=== PATIENT | female | born 1940 | race Caucasian/White ===

== ENCOUNTER 2017-07-21 10:22 | Emergency (ER) | payer OTHER ==
--- NOTE | 2017-07-21 11:56 | RAD REPORT ---
EXAM DESCRIPTION: RAD - Wrist Left 3 View - 07/21/2017 11:25 am CLINICAL HISTORY: Slip and fall, hand and wrist pain COMPARISON: None. FINDINGS: There is comminuted fracture of the distal radius with impaction of the main body radius i nto the multiple fracture fragments. Fracture fragments are displaced. Articular surface is involved by the fracture. Ulna styloid fracture is present. Carpal bones maintain normal positioning to the fr acture fragments. No significant angulation deformity. No displacement in anterior or posterior direc tion. No pathologic bone process. Underlying degenerative changes are present. No foreign body or oth er soft tissue abnormality. IMPRESSION: Comminuted distal radius fracture with impaction of the main body radius into the multip le fracture fragments. Fracture involves the articular surface along more than 1 site. Ulna styloid fracture.
--- NOTE | 2017-07-21 11:58 | RAD REPORT ---
EXAM DESCRIPTION: RAD - Hand Left 3 View - 07/21/2017 11:25 am CLINICAL HISTORY: Fall, hand and wrist pain COMPARISON: None. FINDINGS: Distal radius and ulna fractures are separately detailed. No fracture or displacement of the carpal bones. There is moderate severity degenerative change at th e scaphoid trapezium and trapezium first metacarpal articulations. Carpal-metacarpal degenerative mt nges are present, mild in degree, throughout the remainder of the second-fifth metacarpal bones. MCP joints are generally spared any significant degenerative change. Mild to moderate degenerative change involves the IP joints of the hand. Findings are most pronounced at the fifth DIP joint. Joint space narrowing and spurring seen. No erosive or destructive component . No abnormal soft tissue calcifications. No foreign body. IMPRESSION: Degenerative changes are present as detailed. No acute finding of the hand. Distal radiu s and ulna fractures are separately detailed.
[2017-07-21] MEDS ORDERED: IBUPROFEN 400 MG TAB ONE (12:13)
--- NOTE | 2017-07-21 13:10 | ER ---
Nurse's Notes [facility] Name: Lizet Hsieh Age: 76 yrs Sex: Female : 1940 Arrival Date: 07/21/2017 Time: 10:26 Bed 10 Private MD: Sridevi Billy C Diagnosis: Displaced comminuted fracture of shaft of radius, left arm Presentation: 07/21 10:30 Presenting complaint: Patient states: "I fell a couple hours ago at [employer] and I lk1 braced myself with my left hand. I think that wrist is broken.". Transition of care: patient was not received from another setting of care. Onset of symptoms was July 21, 2017 at 08:00. Care prior to arrival: None. 10:30 Method Of Arrival: Ambulatory lk1 10:30 Acuity: MIGUEL ANGEL 3 lk1 Triage Assessment: 10:33 General: Appears in no apparent distress. Behavior is calm, cooperative, appropriate lk1 for age. Pain: Denies pain. Pain at worst was 8 out of 10 on a pain scale. Historical: - Allergies: 10:32 "pain pills"; lk1 10:32 Codeine; lk1 - PMHx: 10:33 osteopenia; High Cholesterol; lk1 - PSHx: 10:32 R hip surgery; R knee replacement; lk1 - Immunization history:: Adult Immunizations up to date. - Social history:: Smoking status: Patient/guardian denies using tobacco. - Family history:: not pertinent. - Hospitalizations: : No recent hospitalization is reported. Screenin:45 Abuse screen: Denies threats or abuse. Denies injuries from another. Nutritional aj1 screening: No deficits noted. Tuberculosis screening: No symptoms or risk factors identified. Assessment: 10:45 General: Appears in no apparent distress. uncomfortable, Behavior is calm, cooperative, aj1 appropriate for age. Pain: Complains of pain in left wrist Pain does not radiate. Pain currently is 8 out of 10 on a pain scale. Quality of pain is described as unable to describe Aggravated by repositioning. Neuro: Level of Consciousness is awake, alert, obeys commands, Oriented to person, place, time, situation, Speech is normal, Facial symmetry appears normal. Cardiovascular: Patient's skin is warm and dry. Respiratory: Airway is patent Respiratory effort is even, unlabored, Respiratory pattern is regular, symmetrical. GI: No signs and/or symptoms were reported involving the gastrointestinal system. : No signs and/or symptoms were reported regarding the genitourinary system. EENT: No signs and/or symptoms were reported regarding the EENT system. Derm: No signs and/or symptoms reported regarding the dermatologic system. Skin is pink, warm \\T\\ dry. normal. Musculoskeletal: Capillary refill < 3 seconds, in left fingers. Range of motion: limited in left wrist Swelling present in left hand and left wrist. 11:45 Reassessment: Patient appears in no apparent distress at this time. No changes from aj1 previously documented assessment. Patient and/or family updated on plan of care and expected duration. Pain level reassessed. Patient is alert, oriented x 3, equal unlabored respirations, skin warm/dry/pink. 12:25 Reassessment: pt placed in finger traps initially with 4 lbs weight as traction, weight iw now increased to 7 lbs. Vital Signs: 10:34 BP 121 / 71; Pulse 78; Resp 15; Temp 97.7(TE); Pulse Ox 97% on R/A; Weight 61.69 kg lk1 (R); Height 5 ft. 3 in. (160.02 cm) (R); Pain 0/10; 10:34 Body Mass Index 24.09 (61.69 kg, 160.02 cm) lk1 ED Course: 10:26 Patient arrived in ED. mr 10:26 Sridevi Billy MD is Private Physician. mr 10:31 Triage completed. lk1 10:36 Arm band placed on right wrist. lk1 10:40 Truong Shelton MD is Attending Physician. rn 10:43 Syl Capellan RN is Primary Nurse. aj1 10:45 Patient has correct armband on for positive identification. Call light in reach. aj1 10:45 No provider procedures requiring assistance completed. aj1 11:24 X-ray completed. Portable x-ray completed in exam room. Patient tolerated procedure mh1 well. 11:26 XRAY Wrist LEFT 3 view In Process Unspecified. EDMS 11:26 XRAY Hand LEFT 3 View In Process Unspecified. EDMS 13:09 Alden Truong MD is Referral Physician. rn 13:33 X-ray completed. Portable x-ray completed in exam room. Patient tolerated procedure mh1 well. 13:33 XRAY Wrist LEFT 2 view In Process Unspecified. EDMS 13:37 Orthoglass splint: Sugar tong splint applied on left arm. aj1 Administered Medications: 11:57 Drug: Motrin 800 mg Route: PO; aj1 13:38 Follow up: Response: No adverse reaction aj1 Outcome: 13:10 Discharge ordered by . rn 14:31 Patient left the ED. aj1 Signatures: Dispatcher [employer] EDMS Syl Capellan, RN RN aj Elaine Carlton Alan Gimenezha 1 Ewa Mendoza, RN ALONZO Truong Shelton MD MD rn Kluge, Leah, RN RN lk1
--- NOTE | 2017-07-21 13:10 | EDPHYS ---
Physician Documentation [facility] Name: Lizet Hsieh Age: 76 yrs Sex: Female : 1940 Arrival Date: 07/21/2017 Time: 10:26 Bed 10 Private MD: Sridevi Billy C ED Physician Truong Shelton HPI: 07/21 10:46 This 76 yrs old Female presents to ER via Ambulatory with complaints of Fall rn Injury. 10:46 Details of fall: The patient fell from an upright position, while walking. Onset: The rn symptoms/episode began/occurred just prior to arrival. Associated injuries: The patient sustained left wrist. Severity of symptoms: At their worst the symptoms were mild, in the emergency department the symptoms are unchanged. The patient has not experienced similar symptoms in the past. The patient has not recently seen a physician. Reports standing, fell on outstretched hand, pain to left wrist, no numbness/tingling. Historical: - Allergies: 10:32 "pain pills"; lk1 10:32 Codeine; lk1 - PMHx: 10:33 osteopenia; High Cholesterol; lk1 - PSHx: 10:32 R hip surgery; R knee replacement; lk1 - Immunization history:: Adult Immunizations up to date. - Social history:: Smoking status: Patient/guardian denies using tobacco. - Family history:: not pertinent. - Hospitalizations: : No recent hospitalization is reported. ROS: 10:46 Constitutional: Negative for fever, chills, and weight loss, Eyes: Negative for injury, rn pain, redness, and discharge, Neck: Negative for injury, pain, and swelling, Cardiovascular: Negative for chest pain, palpitations, and edema, Respiratory: Negative for shortness of breath, cough, wheezing, and pleuritic chest pain, Abdomen/GI: Negative for abdominal pain, nausea, vomiting, diarrhea, and constipation, Back: Negative for injury and pain, MS/Extremity: + left wrist pain and injury Skin: Negative for injury, rash, and discoloration, Neuro: Negative for headache, weakness, numbness, tingling, and seizure. Exam: 10:46 Constitutional: This is a well developed, well nourished patient who is awake, alert, rn and in no acute distress. Head/Face: Normocephalic, atraumatic. Eyes: Pupils equal round and reactive to light, extra-ocular motions intact. Lids and lashes normal. Conjunctiva and sclera are non-icteric and not injected. Cornea within normal limits. Periorbital areas with no swelling, redness, or edema. Neck: Trachea midline, no thyromegaly or masses palpated, and no cervical lymphadenopathy. Supple, full range of motion without nuchal rigidity, or vertebral point tenderness. No Meningismus. Cardiovascular: Regular rate and rhythm with a normal S1 and S2. No gallops, murmurs, or rubs. Normal PMI, no JVD. No pulse deficits. Respiratory: Lungs have equal breath sounds bilaterally, clear to auscultation and percussion. No rales, rhonchi or wheezes noted. No increased work of breathing, no retractions or nasal flaring. Abdomen/GI: Soft, non-tender, with normal bowel sounds. No distension or tympany. No guarding or rebound. No evidence of tenderness throughout. Back: No spinal tenderness. No costovertebral tenderness. Full range of motion. MS/ Extremity: Pulses equal, no cyanosis. Neurovascular intact. + tender left distal radius, no crepitus, + mild dorsal swelling, no tenderness along MCPs Neuro: Awake and alert, GCS 15, oriented to person, place, time, and situation. Cranial nerves II-XII grossly intact. Motor strength 5/5 in all extremities. Sensory grossly intact. Cerebellar exam normal. Normal gait. Vital Signs: 10:34 BP 121 / 71; Pulse 78; Resp 15; Temp 97.7(TE); Pulse Ox 97% on R/A; Weight 61.69 kg lk1 (R); Height 5 ft. 3 in. (160.02 cm) (R); Pain 0/10; 10:34 Body Mass Index 24.09 (61.69 kg, 160.02 cm) lk1 MDM: 10:40 Patient medically screened. rn 13:07 Differential diagnosis: fracture, sprain, strain. Data reviewed: vital signs, nurses rn notes, radiologic studies, plain films, and as a result, I will discharge patient. Counseling: I had a detailed discussion with the patient and/or guardian regarding: the historical points, exam findings, and any diagnostic results supporting the discharge/admit diagnosis, radiology results, the need for outpatient follow up, to return to the emergency department if symptoms worsen or persist or if there are any questions or concerns that arise at home. Special discussion: I discussed with the patient/guardian in detail that at this point there is no indication for admission to the hospital. It is understood, however, that if the symptoms persist or worsen the patient needs to return immediately for re-evaluation. 13:10 ED course: Pt states cannot take pain medication, wants only ibuprofen.. rn 07/21 10:44 Order name: XRAY Wrist LEFT 3 view; Complete Time: 11:59 rn 07/21 10:44 Order name: XRAY Hand LEFT 3 View; Complete Time: 11:59 rn 07/21 11:46 Order name: Splint - Sugar Tong - Forearm: place in finger traps and traction with rn weight for 20 min then splint; Complete Time: 12:28 07/21 13:11 Order name: XRAY Wrist LEFT 2 view; Complete Time: 14:06 rn Administered Medications: 11:57 Drug: Motrin 800 mg Route: PO; aj 13:38 Follow up: Response: No adverse reaction aj1 Disposition: 07/21/17 13:10 Discharged to Home. Impression: Displaced comminuted fracture of shaft of radius, left arm. - Condition is Stable. - Discharge Instructions: Wrist Fracture, Wrist Splint. - Medication Reconciliation Form, Thank You Letter, Antibiotic Education, Prescription Opioid Use form. - Follow up: Alden Truong MD; When: 5 - 6 days; Reason: Recheck today's complaints, Re-evaluation by your physician. - Problem is new. - Symptoms have improved. Signatures: Dispatcher [employer] EDSyl Hyatt RN RN aj1 Truong Shelton MD MD rn Kluge, Leah, RN RN lk1
--- NOTE | 2017-07-21 13:55 | RAD REPORT ---
EXAM DESCRIPTION: RAD - Wrist Left 2 View - 07/21/2017 1:33 pm FINDINGS: Two views of the left wrist were obtained during traction maneuver. The impaction has impr shireen but not fully resolved. Comminuted fracture of the distal radius again noted.
[2017-07-21 14:35] VITALS: BP 121/71; TEMP 97.7; O2SAT 97
== END 2017-07-21 14:31 | disposition home or self-care (01) ==
LOC: ER 10:22
DX: Y92.512 Supermarket, store or market as the place of occurrence of the external cause; S52.352A Displaced comminuted fracture of shaft of radius, left arm, initial encounter for closed fracture; Y93.01 Activity, walking, marching and hiking; Z88.5 Allergy status to narcotic agent; W18.30XA Fall on same level, unspecified, initial encounter
CPT/HCPCS: 99283

== ENCOUNTER 2018-02-23 22:55 | Emergency (ER) | payer OTHER ==
--- NOTE | 2018-02-23 23:50 | ER ---
Nurse's Notes [facility] Name: Lizet Hsieh Age: 77 yrs Sex: Female : 1940 Arrival Date: 02/23/2018 Time: 22:55 Bed 15 Private MD: Diagnosis: Fracture of greater tuberosity of humerus Presentation: 02/23 23:09 Presenting complaint: EMS states: The pt was vacuuming in her home when she lost jb4 balance and fell. She hit her shoulder on the coffee table, denies LOC or hitting her head. pt was sitting in the recliner upon arrival, and had elevated b/p. Transition of care: patient was not received from another setting of care. Onset of symptoms was February 23, 2018. Risk Assessment: Do you want to hurt yourself or someone else? Patient reports no desire to harm self or others. Initial Sepsis Screen: Does the patient meet any 2 criteria? No. Patient's initial sepsis screen is negative. Does the patient have a suspected source of infection? No. Patient's initial sepsis screen is negative. Care prior to arrival: Glucose check: 128. 23:09 Method Of Arrival: EMS: [facility] jb4 23:09 Acuity: MIGUEL ANGEL 3 jb4 Triage Assessment: 23:15 General: Appears in no apparent distress. comfortable, Behavior is calm, cooperative, jb4 appropriate for age. Pain: Complains of pain in Right shoulder. Pain does not radiate. Pain currently is 0 out of 10 on a pain scale. at worst was 10 out of 10 on a pain scale. EENT: No signs and/or symptoms were reported regarding the EENT system. Neuro: Level of Consciousness is awake, alert, obeys commands, Oriented to person, place, time, situation. Cardiovascular: Patient's skin is warm and dry. Respiratory: Airway is patent Respiratory effort is even, unlabored, Respiratory pattern is regular, symmetrical. GI: No signs and/or symptoms were reported involving the gastrointestinal system. : No signs and/or symptoms were reported regarding the genitourinary system. Derm: Skin is intact, Skin is pink, warm \\T\\ dry. Musculoskeletal: Circulation, motion, and sensation intact. Historical: - Allergies: 23:15 "pain pills"; jb4 23:15 Codeine; jb4 - Home Meds: 23:15 Lipitor Oral [Active]; Aspirin Oral [Active]; Multiple Vitamins oral oral [Active]; jb4 - PMHx: 23:15 High Cholesterol; Osteopenia; jb4 - PSHx: 23:15 R hip surgery; R knee replacement; L wrist surgery; jb4 - Immunization history:: Adult Immunizations up to date, Flu vaccine status is unknown. - Social history:: Smoking status: Patient/guardian denies using tobacco, Patient/guardian denies using alcohol. - Ebola Screening: : No symptoms or risks identified at this time. Screenin:19 Abuse screen: Denies threats or abuse. Nutritional screening: No deficits noted. jb4 Tuberculosis screening: No symptoms or risk factors identified. Fall Risk Ambulatory Aid- Crutches/Cane/Walker (15 pts). Total Grant Fall Scale indicates No Risk (0-24 pts). Assessment: 23:19 General: see triage assessment.. jb4 02/24 00:12 Reassessment: Patient appears in no apparent distress at this time. Patient and/or jb4 family updated on plan of care and expected duration. Pain level reassessed. Patient is alert, oriented x 3, equal unlabored respirations, skin warm/dry/pink. Vital Signs: 02/23 23:15 BP 109 / 74; Pulse 84; Resp 18; Temp 98.0(O); Pulse Ox 98% ; Weight 61.23 kg; Height 5 jb4 ft. 3 in. (160.02 cm); Pain 0/10; 02/24 00:12 BP 121 / 76; Pulse 84; Pulse Ox 97% on R/A; jb4 02/23 23:15 Body Mass Index 23.91 (61.23 kg, 160.02 cm) jb4 ED Course: 02/23 22:55 Patient arrived in ED. al2 23:04 Justice Araujo NP is PHCP. pm1 23:04 Carmelo Duarte MD is Attending Physician. pm1 23:07 Freddie Meehan, RN is Primary Nurse. jb4 23:12 Triage completed. jb4 23:15 Arm band placed on left wrist. jb4 23:19 Patient has correct armband on for positive identification. Bed in low position. Call jb4 light in reach. Side rails up X2. Pulse ox on. NIBP on. 23:47 X-ray completed. Portable x-ray completed in exam room. Patient tolerated procedure kw well. 23:47 Humerus Right XRAY In Process Unspecified. EDMS 23:49 Yonis Damico MD is Referral Physician. pm1 02/24 00:12 No provider procedures requiring assistance completed. Patient did not have IV access jb4 during this emergency room visit. Administered Medications: No medications were administered Outcome: 02/23 23:50 Discharge ordered by MD. pm1 02/24 00:12 Discharged to home ambulatory. jb4 Condition: stable Discharge instructions given to patient, family, Instructed on discharge instructions, follow up and referral plans. medication usage, Demonstrated understanding of instructions, follow-up care, medications. 00:13 Patient left the ED. jb4 Signatures: Dispatcher [employer] EDMS Kerrie Kemp Patrick, SHANTA ASSISTANT WAREHOUSE MANAGER pm1 Freddie Meehan, RN RN jb4 Padmini Hines2
--- NOTE | 2018-02-23 23:51 | EDPHYS ---
Physician Documentation [facility] Name: Lizet Hsieh Age: 77 yrs Sex: Female : 1940 Arrival Date: 02/23/2018 Time: 22:55 Bed 15 Private MD: ED Physician Carmelo Duarte HPI: 02/23 23:50 This 77 yrs old Female presents to ER via EMS with complaints of Fall Injury. pm1 23:50 Details of fall: The patient fell from an upright position, while standing. Onset: The pm1 symptoms/episode began/occurred today. Associated injuries: The patient sustained posterior aspect of right shoulder. Severity of symptoms: in the emergency department the symptoms are unchanged. The patient has not experienced similar symptoms in the past. The patient has not recently seen a physician. Patient uses a walker. Patient decided to vacuum without the use of her walker. Patient lost her balance and hit her right shoulder on the coffee table. No headache, head injury, neck pain, LOC. Patient able to walk after injury. No numbness or tingling to right hand. Historical: - Allergies: 23:15 "pain pills"; jb4 23:15 Codeine; jb4 - Home Meds: 23:15 Lipitor Oral [Active]; Aspirin Oral [Active]; Multiple Vitamins oral oral [Active]; jb4 - PMHx: 23:15 High Cholesterol; Osteopenia; jb4 - PSHx: 23:15 R hip surgery; R knee replacement; L wrist surgery; jb4 - Immunization history:: Adult Immunizations up to date, Flu vaccine status is unknown. - Social history:: Smoking status: Patient/guardian denies using tobacco, Patient/guardian denies using alcohol. - Ebola Screening: : No symptoms or risks identified at this time. ROS: 23:50 Constitutional: Negative for fever, chills, and weight loss, Eyes: Negative for injury, pm1 pain, redness, and discharge, ENT: Negative for injury, pain, and discharge, Neck: Negative for injury, pain, and swelling, Cardiovascular: Negative for chest pain, palpitations, and edema, Respiratory: Negative for shortness of breath, cough, wheezing, and pleuritic chest pain, Abdomen/GI: Negative for abdominal pain, nausea, vomiting, diarrhea, and constipation, Back: Negative for injury and pain. 23:50 Skin: Negative for injury, rash, and discoloration, Neuro: Negative for headache, weakness, numbness, tingling, and seizure. 23:50 MS/extremity: Positive for pain, of the posterior aspect of right shoulder, Negative for deformity. Exam: 23:50 Constitutional: This is a well developed, well nourished patient who is awake, alert, pm1 and in no acute distress. Head/Face: Normocephalic, atraumatic. Eyes: Pupils equal round and reactive to light, extra-ocular motions intact. Lids and lashes normal. Conjunctiva and sclera are non-icteric and not injected. Cornea within normal limits. Periorbital areas with no swelling, redness, or edema. ENT: Nares patent. No nasal discharge, no septal abnormalities noted. Tympanic membranes are normal and external auditory canals are clear. Oropharynx with no redness, swelling, or masses, exudates, or evidence of obstruction, uvula midline. Mucous membranes moist. Neck: Trachea midline, no thyromegaly or masses palpated, and no cervical lymphadenopathy. Supple, full range of motion without nuchal rigidity, or vertebral point tenderness. No Meningismus. Chest/axilla: Normal chest wall appearance and motion. Nontender with no deformity. No lesions are appreciated. Cardiovascular: Regular rate and rhythm with a normal S1 and S2. No gallops, murmurs, or rubs. Normal PMI, no JVD. No pulse deficits. Respiratory: Lungs have equal breath sounds bilaterally, clear to auscultation and percussion. No rales, rhonchi or wheezes noted. No increased work of breathing, no retractions or nasal flaring. Abdomen/GI: Soft, non-tender, with normal bowel sounds. No distension or tympany. No guarding or rebound. No evidence of tenderness throughout. Back: No spinal tenderness. No costovertebral tenderness. Full range of motion. Skin: Warm, dry with normal turgor. Normal color with no rashes, no lesions, and no evidence of cellulitis. 23:50 Musculoskeletal/extremity: Extremities: grossly normal except: noted in the posterior and lateral aspect of proximal right humerus: tenderness, There is no evidence of deformity, ROM: Circulation is intact in all extremities. Pulses: noted to be 2+ in the right radial artery. 23:50 Neuro: Orientation: is normal, Motor: moves all fours, strength is 5/5 in all extremities. Vital Signs: 23:15 BP 109 / 74; Pulse 84; Resp 18; Temp 98.0(O); Pulse Ox 98% ; Weight 61.23 kg; Height 5 jb4 ft. 3 in. (160.02 cm); Pain 0/10; 02/24 00:12 BP 121 / 76; Pulse 84; Pulse Ox 97% on R/A; jb4 02/23 23:15 Body Mass Index 23.91 (61.23 kg, 160.02 cm) jb4 MDM: 02/23 23:09 Patient medically screened. [facility] 23:49 Data reviewed: vital signs. Data interpreted: Pulse oximetry: on room air is 98 %. pm1 Interpretation: normal. Counseling: I had a detailed discussion with the patient and/or guardian regarding: the historical points, exam findings, and any diagnostic results supporting the discharge/admit diagnosis, radiology results, the need for outpatient follow up, for definitive care, a orthopedic surgeon, to return to the emergency department if symptoms worsen or persist or if there are any questions or concerns that arise at home. 02/23 23:22 Order name: Humerus Right XRAY pm1 02/23 23:49 Order name: Sling; Complete Time: 23:58 pm1 Administered Medications: No medications were administered Disposition: 02/24 08:55 Co-signature as Attending Physician, Carmelo Duarte MD I agree with the assessment and [facility] plan of care. Disposition: 02/23/18 23:50 Discharged to Home. Impression: Fracture of greater tuberosity of humerus. - Condition is Stable. - Discharge Instructions: Humerus Fracture Treated With Immobilization. - Medication Reconciliation Form, Thank You Letter form. - Follow up: Yonis Damico MD; When: 2 - 3 days; Reason: Recheck today's complaints, Continuance of care, Re-evaluation by your physician. - Problem is new. - Symptoms have improved. Signatures: Dispatcher [employer] Carmelo Mohamud MD MD cha Marinas, Patrick, DURABLE MEDICAL EQUIPMENT REPAIRER DURABLE MEDICAL EQUIPMENT REPAIRER pm1 Freddie Meehan RN RN jb4 Corrections: (The following items were deleted from the chart) 00:13 02/23 23:50 02/23/2018 23:50 Discharged to Home. Impression: Fracture of greater jb4 tuberosity of humerus. Condition is Stable. Forms are Medication Reconciliation Form, Thank You Letter, Antibiotic Education, Prescription Opioid Use. Follow up: Yonis Damico; When: 2 - 3 days; Reason: Recheck today's complaints, Continuance of care, Re-evaluation by your physician. Problem is new. Symptoms have improved. pm1
[2018-02-24 00:18] VITALS: TEMP 98
[2018-02-24 00:19] VITALS: BP 121/76; O2SAT 97
--- NOTE | 2018-02-24 08:40 | RAD REPORT ---
EXAM DESCRIPTION: RAD - Humerus Right - 02/23/2018 11:47 pm CLINICAL HISTORY: Fall, shoulder pain COMPARISON: None. FINDINGS: Transverse fracture is present through the proximal right humeral metaphysis. No distracti on or angulation deformity. There is no dislocation of the humeral head. No pathologic component seen . Minimal AC joint degenerative change present without spurring. Acromial humeral joint space is normal . IMPRESSION: Proximal right humerus fracture as detailed.
== END 2018-02-24 00:13 | disposition home or self-care (01) ==
LOC: ER 22:55
DX: S42.251A Displaced fracture of greater tuberosity of right humerus, initial encounter for closed fracture (principal); E78.00 Pure hypercholesterolemia, unspecified; W18.39XA Other fall on same level, initial encounter; Y93.89 Activity, other specified; Y92.009 Unspecified place in unspecified non-institutional (private) residence as the place of occurrence of the external cause; Z88.6 Allergy status to analgesic agent
CPT/HCPCS: 99283

== ENCOUNTER 2018-10-04 18:09 | Emergency (ER) | payer OTHER ==
--- NOTE | 2018-10-04 19:35 | RAD REPORT ---
EXAM DESCRIPTION: CT - Head C Spine Mpr Wo Con - 10/04/2018 7:21 pm CLINICAL HISTORY: Head and neck injury status post fall. Head and neck pain COMPARISON: None. TECHNIQUE: Computed axial tomography of the head and cervical spine was obtained. Sagittal and coronal reconstruction was performed. All CT scans are performed using dose optimization technique as appropriate and may include automated exposure control or mA/KV adjustment according to patient size. FINDINGS: An intracranial bleed is not seen. The ventricles are normal in caliber. An extra-axial fl uid collection is not noted.Fluid within the visualized sinuses and mastoids is not seen A cervical fracture is not visualized. No dislocation is noted. Mild anterior subluxation C3 on C4. Mild posterior subluxation C5 on C6. Spondylosis C5-6 results in marked narrowing of the neural kris horacio bilaterally and mild central spinal stenosis. Disc is thinned IMPRESSION: No acute intracranial abnormality is seen. A cervical fracture is not visualized. If the patient continues to have symptoms to suggest intracra nial /spinal cord/ligamentous pathology then MRI would be recommended
--- NOTE | 2018-10-04 19:49 | RAD REPORT ---
EXAM DESCRIPTION: RAD - Forearm Right - 10/04/2018 7:39 pm CLINICAL HISTORY: Right arm pain status post fall FINDINGS: Markedly displaced fracture involves the distal diaphysis right radius Plate and screws affix an old distal radial fracture. Osteoporosis
[2018-10-04] MEDS ORDERED: NA CHLORIDE 0.9% 500 ML ONE (20:17)
[2018-10-04] MEDS ORDERED: FENTANYL CITR 100 MCG/2 ML ONE (20:17)
[2018-10-04] MEDS ORDERED: PROPOFOL 200 MG/20 ML VIAL IV ONE (20:17)
[2018-10-04] MEDS ORDERED: ONDANSETRON 4 MG/2 ML VIAL ONE (20:47)
--- NOTE | 2018-10-04 21:27 | RAD REPORT ---
EXAM DESCRIPTION: RAD - Forearm Right - 10/04/2018 8:54 pm CLINICAL HISTORY: Radial fracture FINDINGS: Although there is less displacement of the radial fracture fragments than on the prior exa m, marked displacement persists
--- NOTE | 2018-10-04 21:33 | ER ---
Nurse's Notes [facility] Name: Lizet Hsieh Age: 77 yrs Sex: Female : 1940 Arrival Date: 10/04/2018 Time: 18:13 Bed 4 Private MD: Diagnosis: Distal radius fracture Presentation: 10/04 18:19 Presenting complaint: Patient states: Patient slipped and fell while walking on concrete today at 1630. Bruising and abrasion to right wrist. Denies LOC. Mechanism of Injury: Fall from standing position. Trauma event details: Injury occurred in the [facility], Injury occurred: at home. Injury occurred: October 04, 2018 Injury occurred at: 16:30. 18:19 Acuity: MIGUEL ANGEL 3 19:23 Transition of care: patient was not received from another setting of care. Onset of ph symptoms was October 04, 2018. Risk Assessment: Do you want to hurt yourself or someone else? Patient reports no desire to harm self or others. Initial Sepsis Screen: Does the patient meet any 2 criteria? No. Patient's initial sepsis screen is negative. Does the patient have a suspected source of infection? No. Patient's initial sepsis screen is negative. Care prior to arrival: None. 19:23 Method Of Arrival: Ambulatory Trauma Activation: Not Applicable Physician: ED Physician; Name: ; Notified At: ; Arrived At: Physician: General Surgeon; Name: ; Notified At: ; Arrived At: Physician: Radiology; Name: ; Notified At: ; Arrived At: Physician: Respiratory; Name: ; Notified At: ; Arrived At: Physician: Lab; Name: ; Notified At: ; Arrived At: Historical: - Allergies: 18:22 "pain pills"; aj 18:22 Codeine; aj - Home Meds: 19:52 Aspirin Oral [Active]; Lipitor Oral [Active]; Multiple Vitamins Oral [Active]; lp1 - PMHx: 19:52 High Cholesterol; Osteopenia; lp1 - Immunization history:: Adult Immunizations unknown. - Social history:: Smoking status: Patient/guardian denies using tobacco. - Ebola Screening: : No symptoms or risks identified at this time. Screenin:22 Abuse screen: Denies threats or abuse. Denies injuries from another. Nutritional ph screening: No deficits noted. Tuberculosis screening: No symptoms or risk factors identified. Fall Risk Fall in past 12 months (25 points). No secondary diagnosis (0 pts). No IV (0 pts). Ambulatory Aid- None/Bed Rest/Nurse Assist (0 pts). Gait- Normal/Bed Rest/Wheelchair (0 pts) Mental Status- Oriented to own ability (0 pts). Total Grant Fall Scale indicates Low Risk Score (25-44 pts). Fall prevention measures have been instituted. Side Rails Up X 2 Family Present and informed to notify staff if they need to leave bedside. Assessment: 18:19 General: Appears in no apparent distress. comfortable, Behavior is calm, cooperative, aj appropriate for age. Pain: Complains of pain in right wrist. Neuro: Level of Consciousness is awake, alert, obeys commands, Oriented to person, place, time, situation, Appropriate for age. Respiratory: Airway is patent Respiratory effort is even, unlabored, Respiratory pattern is regular, symmetrical. Derm: Skin is intact, is healthy with good turgor, Skin is pink, warm \\T\\ dry. normal. 19:30 Reassessment: Patient appears in no apparent distress at this time. Patient is alert, lp1 oriented x 3, equal unlabored respirations, skin warm/dry/pink. Derm: Wound noted Wound is abrasion to right wrist. 19:30 Cardiovascular: Patient's skin is warm and dry. Musculoskeletal: Circulation, motion, lp1 and sensation intact. 19:45 Reassessment: Dr. Ashford at beside to discuss plan of care with patient and family. lp1 20:15 Reassessment: Provider giving verbal orders during conscious sedation. lp1 21:00 Reassessment: Patient is alert, oriented x 3, equal unlabored respirations, skin lp1 warm/dry/pink. Patient tolerating ice chips at this time; Conscious sedation completed at this time; X-ray at bedside. 21:30 Reassessment: Patient appears in no apparent distress at this time. Patient is alert, lp1 oriented x 3, equal unlabored respirations, skin warm/dry/pink. Patient states feeling better. Cardiovascular: Capillary refill < 3 seconds in bilateral fingers Pulses are all present. Vital Signs: 18:19 BP 135 / 65; Pulse 76; Resp 20; Temp 98.3; Pulse Ox 98% on R/A; Weight 61.23 kg; Height aj 5 ft. 2 in. (157.48 cm); 20:14 BP 117 / 88; Pulse 70; Resp 18; Temp 98.1(TE); Pulse Ox 98% on R/A; lp1 21:16 BP 129 / 75; Pulse 72; Resp 18; Pulse Ox 97% ; aa1 21:30 BP 114 / 90; Pulse 73; Resp 13; Pulse Ox 98% on R/A; Pain 1/10; lp1 18:19 Body Mass Index 24.69 (61.23 kg, 157.48 cm) aj 20:14 See Conscious Sedation Flowsheet for further vitals lp1 [place] Coma Score: 18:19 Eye Response: spontaneous(4). Verbal Response: oriented(5). Motor Response: obeys aj commands(6). Total: 15. Trauma Score (Adult): 18:19 Eye Response: spontaneous(1); Verbal Response: oriented(1); Motor Response: obeys aj commands(2); Systolic BP: > 89 mm Hg(4); Respiratory Rate: 10 to 29 per min(4); [place] Score: 15; Trauma Score: 12 ED Course: 18:13 Patient arrived in ED. tw3 18:20 Triage completed. aj 18:22 Arm band placed on left wrist. Patient placed in an exam room. aj 18:27 Kaylah Ko, RN is Primary Nurse. ph 18:56 Jerry Ashford MD is Attending Physician. ps1 19:23 CT Head C Spine In Process Unspecified. EDMS 19:23 Patient has correct armband on for positive identification. Bed in low position. Call ph light in reach. Side rails up X 1. Door closed. Noise minimized. 19:43 Forearm Right XRAY In Process Unspecified. EDMS 20:00 Consent for conscious sedation explained by physician, Signed by patient's daughter. lp1 20:00 media monitor on. Pulse ox on. NIBP on. lp1 20:00 One-on-one care X 60 minutes. lp1 20:28 Inserted saline lock: 22 gauge in left antecubital area, using aseptic technique. fc 20:30 Assist provider with reduction of right wrist using manipulation, Set up for procedure. lp1 Performed by Jerry Ashford MD Immobilized with wrist splint, Patient tolerated well. 20:53 Forearm Right XRAY In Process Unspecified. EDMS 21:32 [place], Yonis, MD is Referral Physician. ps1 21:33 Alden Truong MD is Referral Physician. ps1 21:40 IV discontinued, No redness/swelling at site. Pressure dressing applied. lp1 Administered Medications: 20:15 Drug: NS 0.9% 500 ml Route: IV; Rate: bolus; Site: left antecubital; lp1 21:00 Follow up: IV Status: IV converted to saline lock; IV Intake: 300ml lp1 20:32 Drug: fentaNYL (PF) 50 mcg Route: IVP; Site: left antecubital; lp1 20:45 Follow up: Response: No adverse reaction lp1 20:34 Drug: Zofran 4 mg Route: IVP; Site: left antecubital; lp1 20:45 Follow up: Response: No adverse reaction lp1 20:37 Drug: Propofol 30 mg Route: IVP; Site: left antecubital; lp1 20:45 Follow up: Response: No adverse reaction; Marked relief of symptoms lp1 Intake: 21:00 IV: 300ml; Total: 300ml. lp1 Outcome: 21:32 Discharge ordered by MD. ps1 21:40 Discharged to home via wheelchair, with significant other. lp1 21:40 Condition: good 21:40 Discharge instructions given to patient, Instructed on discharge instructions, follow up and referral plans. Demonstrated understanding of instructions, follow-up care. 21:45 Patient left the ED. lp1 Signatures: Dispatcher [employer] EDMS Charlotte Carrera RN RN aaLoretta Stephenson RN RN aj Chretien, Felicia, RN RN fc Pena, Laura, RN RN lp1 Kaylah Ko RN RN ph Wade, Pauline tw3 Jerry Ashford MD MD ps1 Corrections: (The following items were deleted from the chart) 22:10 22:09 Patient left the ED. lp1 lp1 22:23 19:48 No provider procedures requiring assistance completed. lp1 lp1 22:23 19:48 Patient did not have IV access during this emergency room visit. lp1 lp1
--- NOTE | 2018-10-04 21:33 | EDPHYS ---
Physician Documentation [facility] Name: Lizet Hsieh Age: 77 yrs Sex: Female : 1940 Arrival Date: 10/04/2018 Time: 18:13 Bed 4 Private MD: ED Physician Jerry Ashford HPI: 10/04 21:33 This 77 yrs old Female presents to ER via Ambulatory with complaints of Fall ps1 Injury. 21:33 patient fell while [place] hx of previous fx to same bone. ps1 Obvious deformity. Pain moderate. No LOC. Not on thinners. NV intact. Abrasion to lateral aspect of wrist. Not open fx. Historical: - Allergies: 18:22 "pain pills"; aj 18:22 Codeine; aj - Home Meds: 19:52 Aspirin Oral [Active]; Lipitor Oral [Active]; Multiple Vitamins Oral [Active]; lp1 - PMHx: 19:52 High Cholesterol; Osteopenia; lp1 - Immunization history:: Adult Immunizations unknown. - Social history:: Smoking status: Patient/guardian denies using tobacco. - Ebola Screening: : No symptoms or risks identified at this time. ROS: 21:33 Constitutional: Negative for fever, chills, and weight loss, Eyes: Negative for injury, ps1 pain, redness, and discharge, ENT: Negative for injury, pain, and discharge, Cardiovascular: Negative for chest pain, palpitations, and edema, Respiratory: Negative for shortness of breath, cough, wheezing, and pleuritic chest pain, Abdomen/GI: Negative for abdominal pain, nausea, vomiting, diarrhea, and constipation, Skin: Negative for injury, rash, and discoloration, Neuro: Negative for headache, weakness, numbness, tingling, and seizure. 21:33 MS/extremity: Positive for injury or acute deformity, decreased range of motion, tenderness, of the right arm. Exam: 21:33 Constitutional: This is a well developed, well nourished patient who is awake, alert, ps1 and in no acute distress. Head/Face: Normocephalic, atraumatic. Eyes: Pupils equal round and reactive to light, extra-ocular motions intact. Lids and lashes normal. Conjunctiva and sclera are non-icteric and not injected. Neck: Trachea midline, no thyromegaly or masses palpated, and no cervical lymphadenopathy. Supple, full range of motion without nuchal rigidity, or vertebral point tenderness. No Meningismus. Chest/axilla: Normal chest wall appearance and motion. Nontender with no deformity. No lesions are appreciated. Cardiovascular: Regular rate and rhythm. No gallops, murmurs, or rubs. Normal PMI, no JVD. No pulse deficits. Respiratory: Lungs have equal breath sounds bilaterally, clear to auscultation and percussion. No rales, rhonchi or wheezes noted. No increased work of breathing, no retractions or nasal flaring. Abdomen/GI: Soft, non-tender, with normal bowel sounds. No distension or tympany. No guarding or rebound. No evidence of tenderness throughout. Neuro: Awake and alert, GCS 15, oriented to person, place, time, and situation. Cranial nerves II-XII grossly intact. Sensory grossly intact. 21:33 Musculoskeletal/extremity: Extremities: grossly normal except: noted in the dorsal aspect of right forearm: decreased ROM, deformity, tenderness, NV intact. 21:33 Skin: injury, abrasion(s), small abrasion noted, of the right arm. Vital Signs: 18:19 BP 135 / 65; Pulse 76; Resp 20; Temp 98.3; Pulse Ox 98% on R/A; Weight 61.23 kg; Height aj 5 ft. 2 in. (157.48 cm); 20:14 BP 117 / 88; Pulse 70; Resp 18; Temp 98.1(TE); Pulse Ox 98% on R/A; lp1 21:16 BP 129 / 75; Pulse 72; Resp 18; Pulse Ox 97% ; aa1 21:30 BP 114 / 90; Pulse 73; Resp 13; Pulse Ox 98% on R/A; Pain 1/10; lp1 18:19 Body Mass Index 24.69 (61.23 kg, 157.48 cm) aj 20:14 See Conscious Sedation Flowsheet for further vitals lp1 John Coma Score: 18:19 Eye Response: spontaneous(4). Verbal Response: oriented(5). Motor Response: obeys aj commands(6). Total: 15. Trauma Score (Adult): 18:19 Eye Response: spontaneous(1); Verbal Response: oriented(1); Motor Response: obeys aj commands(2); Systolic BP: > 89 mm Hg(4); Respiratory Rate: 10 to 29 per min(4); John Score: 15; Trauma Score: 12 Procedures: 21:37 Splinting: Splint applied to dorsal aspect of right forearm using double sugartong. ps1 applied by myself. post reduction film - reveals improved alignment, Examined by me, post splint application: neurovascular intact, 2+ distal pulses palpable, brisk capillary refill noted, Patient tolerated well. 21:38 Moderate sedation: Pre-procedure assessment: ASA physical classification: II - mild/mod ps1 systemic disease that does not interfere with daily routines, Airway assessment: able to hyperextend neck, able to maintain airway, can open mouth without difficulty, Mallampati classification of tongue size: III - uvula can be visualized, but faucial pillars and soft palate are not appreciated, Monitoring during procedure: stadium manager, continuous pulse oximetry, nurse at bedside at all times, ETCO2, Medications employed: Fentanyl, 50 mcg(s), propofol 60mg, Post-procedure assessment: the patient is moderately sedated, Respiratory status: even and unlabored, a reversal agent was not used. MDM: 19:14 Patient medically screened. ps1 21:37 Data reviewed: vital signs, nurses notes, radiologic studies, plain films, and as a ps1 result, I will discharge patient. Counseling: I had a detailed discussion with the patient and/or guardian regarding: the historical points, exam findings, and any diagnostic results supporting the discharge/admit diagnosis, radiology results, the need for outpatient follow up, for definitive care, a orthopedic surgeon. 21:40 ED course: patient refused pain meds on discharge. ps1 10/04 19:06 Order name: CT Head C Spine; Complete Time: 19:38 ps1 10/04 19:06 Order name: Forearm Right XRAY; Complete Time: 19:55 ps1 10/04 20:38 Order name: Forearm Right XRAY; Complete Time: 21:33 fc Administered Medications: 20:15 Drug: NS 0.9% 500 ml Route: IV; Rate: bolus; Site: left antecubital; lp1 21:00 Follow up: IV Status: IV converted to saline lock; IV Intake: 300ml lp1 20:32 Drug: fentaNYL (PF) 50 mcg Route: IVP; Site: left antecubital; lp1 20:45 Follow up: Response: No adverse reaction lp1 20:34 Drug: Zofran 4 mg Route: IVP; Site: left antecubital; lp1 20:45 Follow up: Response: No adverse reaction lp1 20:37 Drug: Propofol 30 mg Route: IVP; Site: left antecubital; lp1 20:45 Follow up: Response: No adverse reaction; Marked relief of symptoms lp1 Disposition: 10/04/18 21:32 Discharged to Home. Impression: Distal radius fracture. - Condition is Stable. - Discharge Instructions: Forearm Fracture, [id number]. - Medication Reconciliation Form, Thank You Letter, Antibiotic Education, Prescription Opioid Use form. - Follow up: Yonis Damico MD; When: Tomorrow; Reason: If symptoms return, Further diagnostic work-up, Recheck today's complaints, Continuance of care. Follow up: Emergency Department; When: As needed; Reason: Worsening of condition. Follow up: Alden Truong MD; When: Tomorrow; Reason: Further diagnostic work-up. - Problem is new. - Symptoms are unchanged. Signatures: Dispatcher [employer] EDMS Loretta Cruz RN RN aj Geno Locke RN RN lp1 Kaylah Ko RN RN Jerry Ashford MD MD ps1 Corrections: (The following items were deleted from the chart) 21:33 21:32 10/04/2018 21:32 Discharged to Home. Impression: Distal radius fracture. ps1 Condition is Stable. Forms are Medication Reconciliation Form, Thank You Letter, Antibiotic Education, Prescription Opioid Use. Follow up: Yonis Damico; When: Tomorrow; Reason: If symptoms return, Further diagnostic work-up, Recheck today's complaints, Continuance of care. Follow up: Emergency Department; When: As needed; Reason: Worsening of condition. Problem is new. Symptoms are unchanged. ps1 22:09 21:33 10/04/2018 21:32 Discharged to Home. Impression: Distal radius fracture. lp1 Condition is Stable. Discharge Instructions: Forearm Fracture, [id number]. Forms are Medication Reconciliation Form, Thank You Letter, Antibiotic Education, Prescription Opioid Use. Follow up: Yonis Damico; When: Tomorrow; Reason: If symptoms return, Further diagnostic work-up, Recheck today's complaints, Continuance of care. Follow up: Emergency Department; When: As needed; Reason: Worsening of condition. Follow up: Alden Truong; When: Tomorrow; Reason: Further diagnostic work-up. Problem is new. Symptoms are unchanged. ps1
[2018-10-05 05:25] VITALS: BP 115/60; TEMP 98.1; O2SAT 99
== END 2018-10-04 22:09 | disposition home or self-care (01) ==
LOC: ER 18:09
PROC: 0PSHXZZ Reposition Right Radius, External Approach (ICD-10-PCS; principal; 2018-10-04)
DX: S52.501A Unspecified fracture of the lower end of right radius, initial encounter for closed fracture (principal); W19.XXXA Unspecified fall, initial encounter; Y93.89 Activity, other specified; Y92.9 Unspecified place or not applicable; Z79.82 Long term (current) use of aspirin; Z08 Encounter for follow-up examination after completed treatment for malignant neoplasm; Z88.5 Allergy status to narcotic agent; Z88.6 Allergy status to analgesic agent
CPT/HCPCS: 96361; 70450; 72125; 73090 ×2; 96375; 96374; 99285; 25605; J2704; J3010; J2405

== ENCOUNTER 2022-12-26 10:11 | Emergency (ER) | payer OTHER ==
--- OUTSIDE RECORDS SUMMARY | 2022-12-26 10:14 | XMS REPORT | Continuity of Care Document ---
:1940 Author Organization [facility] t Address [address] [place] [id number] Care Team Providers Name Role Phone Unavailable Unavailable Unavailable Problems This patient has no known problems. Allergies, Adverse Reactions, Alerts This patient has no known allergies or adverse reactions. Medications This patient has no known medications. Procedures This patient has no known procedures. Results This patient has no known results.
--- NOTE | 2022-12-26 11:53 | RAD REPORT ---
EXAM DESCRIPTION: CT - [id number] - 12/26/2022 11:24 am CLINICAL HISTORY: TRAUMA COMPARISON: Head C Spine Mpr Wo Con dated 10/04/2018 TECHNIQUE: Axial thin cut noncontrast CT images of the head were obtained. Axial thin cut noncontrast CT images of the cervical spine were obtained. Multiplanar reformatted images were generated and reviewed. All CT scans are performed using dose optimization technique as appropriate and may include automated exposure control or mA/KV adjustment according to patient size. FINDINGS: CT HEAD WITHOUT CONTRAST: No acute hemorrhage, hydrocephalus or extra-axial collection is identified.No areas of brain edema or midline shift. Left high parietal soft tissue swelling/hematoma. The paranasal sinuses and mastoids are clear.The ca lvarium is intact. CT CERVICAL SPINE WITHOUT CONTRAST: No acute traumatic fracture or subluxation.No prevertebral soft tissues swelling is identified. Multi level degenerative changes with minimal degrees of spondylolisthesis, disc height loss, and variable degrees of foraminal narrowing. IMPRESSION: No acute traumatic intracranial or cervical spine findings. Left high parietal soft tissue swelling/hematoma. Degenerative cervical spine changes as above.
--- NOTE | 2022-12-26 12:09 | RAD REPORT ---
EXAM DESCRIPTION: [place] Single View12/26/2022 10:35 am CLINICAL HISTORY: TRAUMA COMPARISON: CHEST SINGLE VIEW dated 09/25/2011; CHEST PA AND LAT 2 VIEW dated 03/03/2008; CHEST PA AND LAT 2 VIEW dated 02/22/1990 TECHNIQUE: Portable AP view of the chest. FINDINGS: The lungs are clear. Left basilar atelectatic changes. No pneumothorax or effusion. The ca rdiomediastinal contours are unremarkable. Proximal left humerus as separately evaluated on dedicate d left shoulder radiographs. IMPRESSION: No acute cardiopulmonary process.
--- NOTE | 2022-12-26 12:11 | RAD REPORT ---
EXAM DESCRIPTION: RAD - Shoulder Left 2 View - 12/26/2022 10:35 am CLINICAL HISTORY: trauma COMPARISON: No comparisons TECHNIQUE: Internal and external rotation views of the left shoulder were obtained. FINDINGS: Buckled and mildly comminuted proximal left humerus fracture. Glenohumeral joint alignment appears well maintained. AC joint shows mild degenerative changes. Soft tissue swelling about the sh oulder joint. . Irregularity along the left eighth and ninth ribs laterally, could relate to mildly d isplaced acute or chronic fractures. Acute or suspicious findings. IMPRESSION: Proximal left humerus fracture as above. Mildly displaced lateral eighth and ninth rib fractures of indeterminate age.
--- NOTE | 2022-12-26 12:49 | ER ---
Nurse's Notes [facility] Name: Lizet Hsieh Age: 82 yrs Sex: Female : 1940 Arrival Date: 12/26/2022 Time: 10:11 Bed 2 Private MD: Diagnosis: Left humeral head fracture, fracture of eighth and ninth ribs, chest wall contusion, fall Presentation: 12/26 10:10 Chief complaint: EMS states: patient has a walker and the brake doesn't work on the [facility] front on one side, it spun out from under her and she fell into the wall striking her left shoulder. Coronavirus screen: At this time, the client does not indicate any symptoms associated with coronavirus-19. Ebola Screen: No symptoms or risks identified at this time. Initial Sepsis Screen: Does the patient meet any 2 criteria? No. Patient's initial sepsis screen is negative. Does the patient have a suspected source of infection? No. Patient's initial sepsis screen is negative. Risk Assessment: Do you want to hurt yourself or someone else? Patient reports no desire to harm self or others. Onset of symptoms was December 26, 2022 at 09:30. Care prior to arrival: IV initiated. 22 GA, in the right antecubital area, Glucose check: 168. 10:10 Method Of Arrival: EMS: [facility] ko1 10:10 Acuity: MIGUEL ANGEL 3 ko1 10:15 Mechanism of Injury: Fall from standing position. Trauma event details: Injury occurred ko in the [facility], Injury occurred: at home. Injury occurred: December 26, 2022 Injury occurred at: 09:20. 13:05 Care prior to arrival: ko1 Triage Assessment: 10:58 General: Appears in no apparent distress. uncomfortable, Behavior is calm, cooperative, ko1 appropriate for age. Pain: Complains of pain in anterior aspect of left shoulder. Trauma Activation: Not Applicable Physician: ED Physician; Name: ; Notified At: ; Arrived At: Physician: General Surgeon; Name: ; Notified At: ; Arrived At: Physician: Radiology; Name: ; Notified At: ; Arrived At: Physician: Respiratory; Name: ; Notified At: ; Arrived At: Physician: Lab; Name: ; Notified At: ; Arrived At: Historical: - Allergies: 10:58 "pain pills"; ko1 10:58 Codeine; ko1 - Home Meds: 10:58 Aspirin Oral [Active]; Multiple Vitamins Oral [Active]; ko1 - PMHx: 10:58 High Cholesterol; Osteopenia; ko1 - Immunization history:: Adult Immunizations up to date. - Social history:: Smoking status: Patient denies any tobacco usage or history of. - Immunization history: Last tetanus immunization: - up to date. Screenin:15 [facility] ED Fall Risk Assessment (Adult) History of falling in the last 3 months, ko1 including since admission Yes- single mechanical fall (1 pt) Confusion or Disorientation No (0 pts) Intoxicated or Sedated No (0 pts) Impaired Gait Yes (1 pt) Mobility Assist Device Used Yes (1 pt) Altered Elimination No (0 pt) Score/Fall Risk Level 0 - 2 = Low Risk Oriented to surroundings, Maintained a safe environment, Educated pt \\T\\ family on fall prevention, incl call for assistance when getting out of bed, Assessed \\T\\ reinforced patient's understanding of fall precautions, Provided non-skid footwear, Hourly rounding (assess needs \\T\\ fall precautionary measures) done, Used ambulatory aids as needed (educated on \\T\\ assisted with), Used gait belt as appropriate. Abuse screen: Denies threats or abuse. Denies injuries from another. Nutritional screening: No deficits noted. Tuberculosis screening: No symptoms or risk factors identified. Primary Survey: 10:15 NO uncontrolled hemorrhage observed. A: The client is awake and alert. The airway is ko1 patent. The client is alert. Airway: patent, No supplemental oxygen in use on arrival. Oral cavity: clear. Breathing/Chest: Spontaneous respiratory effort, equal unlabored respirations, breath sounds clear bilaterally, regular pattern, symmetrical chest rise and fall. Circulation: No external hemorrhage present. Regular and strong central pulse, skin warm/dry/normal color. Disability Pupils are equal, round, reactive to light and accommodation. Client is alert. Exposure/Environment: There is no evidence of uncontrolled external bleeding. Obvious injury(ies) are noted at this time: left arm pain, possible fracture. 10:15 Reassessment Alertness and Airway: Awake and alert. The airway is patent. Breathing: ko1 Circulation: No external hemorrhage noted. Regular and strong central pulse, skin warm/dry/normal color. Disability: Pupils Pupils are equal, round, reactive to light and accomodation. Alert. Assessment: 10:15 Neuro: No deficits noted. Cardiovascular: No deficits noted. Respiratory: No deficits ko1 noted. GI: No deficits noted. : No deficits noted. EENT: No deficits noted. Derm: No deficits noted. Musculoskeletal: Reports pain in anterior aspect of left shoulder. Vital Signs: 10:10 BP 132 / 74; Pulse 77; Resp 16; Temp 97; Pulse Ox 99% ; Weight 54.43 kg; Height 5 ft. 0 ko1 in. ; 13:00 BP 126 / 74; Pulse 72; Resp 18; Pulse Ox 100% ; ko1 10:10 Body Mass Index 23.44 (54.43 kg, 152.4 cm) ko1 [place] Coma Score: 10:15 Eye Response: spontaneous(4). Motor Response: obeys commands(6). Verbal Response: ko1 oriented(5). Total: 15. Trauma Score (Adult): 10:15 Eye Response: spontaneous(1); Verbal Response: oriented(1); Motor Response: obeys ko1 commands(2); Systolic BP: > 89 mm Hg(4); Respiratory Rate: 10 to 29 per min(4); John Score: 15; Trauma Score: 12 ED Course: 10:14 Patient arrived in ED. eb 10:15 Hood Haywood MD is Attending Physician. sp3 10:15 Patient has correct armband on for positive identification. Bed in low position. Call ko1 light in reach. Side rails up X 1. Provided Education on: na. Pulse ox on. NIBP on. Door closed. Noise minimized. Warm blanket given. 10:15 Maintain EMS IV. Dressing intact. Good blood return noted. Site clean \\T\\ dry. Gauge \\T\\ ko 1 site: 22 R AC. 10:15 Patient maintains SpO2 saturation greater than 95% on room air. ko1 10:15 Thermoregulation: warm blanket given to patient. ko1 10:37 CXR XRAY In Process Unspecified. EDMS 10:37 Shoulder Left (2 View) XRAY In Process Unspecified. EDMS 10:54 Nata Cannon, ALONZO is Primary Nurse. ko1 10:58 Triage completed. ko1 10:58 Arm band placed on left wrist. Patient placed in an exam room, on a stretcher, on pulse ko1 oximetry, Patient notified of wait time. 11:26 CT Head C Spine In Process Unspecified. EDMS 12:48 Yonis Damico MD is Referral Physician. sp3 13:00 No provider procedures requiring assistance completed. IV discontinued, intact, ko1 bleeding controlled, No redness/swelling at site. Pressure dressing applied. Sling applied to left arm. Administered Medications: No medications were administered Medication: 10:15 VIS not applicable for this client. ko1 Intake: 10:15 PO: 0ml; IV: 0ml; Total: 0ml. ko1 Output: 10:15 Urine: 0ml; Total: 0ml. ko1 Outcome: 10:15 Patient's length of stay in the Emergency Department was greater than 2 hours. ko1 12:48 Discharge ordered by . sp3 13:00 Condition: stable ko1 13:19 Discharged to home via wheelchair, with family. ko1 13:19 Discharge instructions given to patient, family, Instructed on discharge instructions, follow up and referral plans. Demonstrated understanding of instructions, follow-up care. 13:20 Patient left the ED. ko1 Signatures: Dispatcher [employer] EDMS Sierra Lopez Setul, MD MD sp3 Nata Cannon, RN RN ko1
--- NOTE | 2022-12-26 12:49 | EDPHYS ---
Physician Documentation [facility] Name: Lizet Hsieh Age: 82 yrs Sex: Female : 1940 Arrival Date: 12/26/2022 Time: 10:11 Bed 2 Private MD: ED Physician Hood Haywood HPI: 12/26 10:32 This 82 yrs old Female presents to ER via Unassigned with complaints of Fall Injury. sp3 10:32 82-year-old female with a history of hyperlipidemia, hypertension presents to the ED sp3 with a mechanical ground-level fall secondary to her walker slipping as was witnessed by family member. She fell on her left side with current pain to her shoulder and family member states that she might of hit her head. Patient has no headache or neck pain whatsoever and states that it did not happen and she also did not lose consciousness. No other pain reported. On review of systems, there is no headache, neck pain, fever, URI symptoms, chest pain, back pain, abdominal pain, pelvic pain, hip pain, joint pain, or any other signs or symptoms at this time. Patient takes 81 mg of aspirin daily and no other antiplatelet or anticoagulant agents.. Historical: - Allergies: 10:58 "pain pills"; ko1 10:58 Codeine; ko1 - Home Meds: 10:58 Aspirin Oral [Active]; Multiple Vitamins Oral [Active]; ko1 - PMHx: 10:58 High Cholesterol; Osteopenia; ko1 - Immunization history:: Adult Immunizations up to date. - Social history:: Smoking status: Patient denies any tobacco usage or history of. - Immunization history: Last tetanus immunization: - up to date. ROS: 10:34 Constitutional: Negative for fever, chills, and weight loss, Eyes: Negative for injury, sp3 pain, redness, and discharge, ENT: Negative for injury, pain, and discharge, Neck: Negative for injury, pain, and swelling, Cardiovascular: Negative for chest pain, palpitations, and edema, Respiratory: Negative for shortness of breath, cough, wheezing, and pleuritic chest pain, Abdomen/GI: Negative for abdominal pain, nausea, vomiting, diarrhea, and constipation, Back: Negative for injury and pain, Skin: Negative for injury, rash, and discoloration, Neuro: Negative for headache, weakness, numbness, tingling, and seizure, Psych: Negative for depression, anxiety, suicide ideation, homicidal ideation, and hallucinations, Allergy/Immunology: Negative for hives, rash, and allergies, Endocrine: Negative for neck swelling, polydipsia, polyuria, polyphagia, and marked weight changes. 10:34 All other systems are negative. Exam: 10:34 Constitutional: This is a well developed, well nourished patient who is awake, alert, sp3 and in no acute distress. Head/Face: Normocephalic, atraumatic. Eyes: Pupils equal round and reactive to light, extra-ocular motions intact. Lids and lashes normal. Conjunctiva and sclera are non-icteric and not injected. Cornea within normal limits. Periorbital areas with no swelling, redness, or edema. ENT: Nares patent. No nasal discharge, no septal abnormalities noted. External auditory canals are clear. Oropharynx with no redness, swelling, or masses, exudates, or evidence of obstruction, uvula midline. Mucous membranes moist. Neck: Trachea midline, no thyromegaly or masses palpated, and no cervical lymphadenopathy. Supple, full range of motion without nuchal rigidity, or vertebral point tenderness. No Meningismus. Chest/axilla: Normal chest wall appearance and motion. Nontender with no deformity. No lesions are appreciated. Cardiovascular: Regular rate and rhythm with a normal S1 and S2. No gallops, murmurs, or rubs. Normal PMI, no JVD. No pulse deficits. Respiratory: Lungs have equal breath sounds bilaterally, clear to auscultation and percussion. No rales, rhonchi or wheezes noted. No increased work of breathing, no retractions or nasal flaring. Back: No spinal tenderness. No costovertebral tenderness. Full range of motion. Skin: Warm, dry with normal turgor. Normal color with no rashes, no lesions, and no evidence of cellulitis. Neuro: Awake and alert, GCS 15, oriented to person, place, time, and situation. Cranial nerves II-XII grossly intact. Motor strength 5/5 in all extremities. Sensory grossly intact. Cerebellar exam normal. Normal gait. Psych: Awake, alert, with orientation to person, place and time. Behavior, mood, and affect are within normal limits. 10:34 Musculoskeletal/extremity: Patient has pain to palpation on the left lateral shoulder. Patient reports pain on abduction motion. Distal neurovascular exam is normal. We will hold on the full range of motion until x-rays are complete.. Vital Signs: 10:10 BP 132 / 74; Pulse 77; Resp 16; Temp 97; Pulse Ox 99% ; Weight 54.43 kg; Height 5 ft. 0 ko1 in. ; 13:00 BP 126 / 74; Pulse 72; Resp 18; Pulse Ox 100% ; ko1 10:10 Body Mass Index 23.44 (54.43 kg, 152.4 cm) ko1 [place] Coma Score: 10:15 Eye Response: spontaneous(4). Motor Response: obeys commands(6). Verbal Response: ko1 oriented(5). Total: 15. Trauma Score (Adult): 10:15 Eye Response: spontaneous(1); Verbal Response: oriented(1); Motor Response: obeys ko1 commands(2); Systolic BP: > 89 mm Hg(4); Respiratory Rate: 10 to 29 per min(4); [place] Score: 15; Trauma Score: 12 MDM: 10:19 Patient medically screened. sp3 10:35 Data reviewed: vital signs, nurses notes, radiologic studies. ED course: 82-year-old sp3 female with mechanical ground-level fall with left shoulder injury. Will obtain CT scan of the head and C-spine, and x-rays of the left shoulder and chest. Further work-up if warranted however if these are negative we will safely discharge patient home with p.o. pain control. Patient declined any pain medications here in the ED including Tylenol.. 12:28 ED course: Left proximal humerus fracture noted on shoulder x-ray as well as eighth and sp3 ninth rib fractures. CT scan of the head and C-spine are negative. We will place patient in a splint and safely discharged home. Vital signs remain normal. Incentive spirometer will be dispensed if available.. 12:46 ED course: Patient has left humeral head fracture with fractures of the eighth and sp3 ninth ribs as well. No pneumothorax noted. Patient still declining pain medication. Will place in sling and have her follow-up with orthopedic doctor. She has had prior experience with this on the right side and is comfortable with the plan.. 12/26 10:20 Order name: CT Head C Spine; Complete Time: 12:25 sp3 12/26 10:20 Order name: CXR XRAY; Complete Time: 12:25 sp3 12/26 10:20 Order name: Shoulder Left (2 View) XRAY; Complete Time: 12:25 sp3 12/26 12:28 Order name: INCENTIVE SPIROMETRY sp3 12/26 12:45 Order name: Sling sp3 Administered Medications: No medications were administered Disposition Summary: 12/26/22 12:48 Discharge Ordered Location: Home sp3 Condition: Stable sp3 Diagnosis - Left humeral head fracture, fracture of eighth and ninth ribs, chest wall sp3 contusion, fall Followup: sp3 - With: Private Physician - When: Upon discharge from the Emergency Department - Reason: Continuance of care Followup: sp3 - With: Yonis Damico MD - When: Upon discharge from the Emergency Department - Reason: Recheck today's complaints Discharge Instructions: - Discharge Summary Sheet sp3 - Fall Prevention in the Home, Adult sp3 - Humerus Fracture Treated With Immobilization sp3 - Rib Fracture sp3 Forms: - Medication Reconciliation Form sp3 - Thank You Letter sp3 - Antibiotic Education sp3 - Prescription Opioid Use sp3 - Patient Portal Instructions sp3 - Leadership Thank You Letter sp3 Signatures: Dispatcher [employer] Hood Heart MD MD sp3 Nata Cannon RN RN ko1
[2022-12-26 13:55] VITALS: BP 126/74; O2SAT 100
== END 2022-12-26 13:20 | disposition home or self-care (01) ==
LOC: ER 10:11
DX: S42.302A Unspecified fracture of shaft of humerus, left arm, initial encounter for closed fracture (principal); S22.42XA Multiple fractures of ribs, left side, initial encounter for closed fracture; S20.212A Contusion of left front wall of thorax, initial encounter; W18.30XA Fall on same level, unspecified, initial encounter; Z88.5 Allergy status to narcotic agent
CPT/HCPCS: 70450; 71045; 72125; 99285

== ENCOUNTER 2024-06-27 17:11 | Inpatient (IN) | payer OTHER ==
--- OUTSIDE RECORDS SUMMARY | 2024-06-27 17:23 | XMS REPORT | Continuity of Care Document ---
Author Name Unknown Address [address] [place] [address] [employer] Address [address] [place] [address] [place] [address] Care Team Providers Care County Agent Name Role Phone Unavailable Unavailable Unavailable
[2024-06-27] MEDS ORDERED: ONDANSETRON 4 MG/2 ML VIAL ONE (17:46)
[2024-06-27] MEDS ORDERED: NA CHLORIDE 0.9% 500 ML ONE (17:46)
--- NOTE | 2024-06-27 18:35 | RAD REPORT ---
EXAM: Chest Single View HISTORY: 83 years Female Cough;Fever COMPARISON: 12/26/2022 FINDINGS: LUNGS/PLEURA: Low lung volumes. Opacities at the medial right lung base could reflect airspace diseas e or atelectasis. CARDIAC/MEDIASTINUM: Mitral annular calcifications. Heart size is within normal limits. UPPER ABDOMEN: No significant abnormality. BONES: No acute abnormality. LINES/TUBES/OTHER: N/A IMPRESSION: Low lung volumes with possible airspace disease in the medial right lung base. A standard PA and late ral may be able to better assess if the patient's condition permits.
[2024-06-27 18:53] LABS: Absolute Lymphocytes (CBC) 0.3 K/uL (0.7-4.9); Absolute Monocytes 0.5 K/uL (0.1-1.3); Absolute Neutrophil 5.5 K/uL (1.8-8.0); Basophils % 0.3 % (0-1.3); Eosinophils % 0.1 % (0-4.4); Hematocrit 40.2 % (36.0-45.0); Hemoglobin 13.6 g/dL (12.0-15.0); Lymphocytes % 5.4 % (15.3-44.8); MCH 33.1 pg (27.0-35.0); MCHC 33.8 g/dL (32.0-36.0); MCV 97.9 fL (80-100); MPV 8.7 fL (7.6-11.3); Monocytes % 7.8 % (3.3-12.3); Neutrophils % 86.4 % (41.7-73.7); Nucleated Red Blood Cells % 0.1 % (0-0); Platelets 194 thou/uL (152-406); RBC Red Blood Cell Count 4.11 M/uL (3.86-4.86); Red Cell Distribution Width 13.5 % (12.1-15.2)
[2024-06-27 19:07] LABS: Albumin 3.5 g/dL (3.4-5.0); Albumin/Globulin Ratio 0.8 (1.1-1.8); Anion Gap 9.3 mEq/L (5.0-15.0); Bilirubin Total 0.4 mg/dL (0.2-1.0); Globulin 4.3 g/dL (2.3-3.5); Potassium 3.3 mEq/L (3.5-5.1); Protein, Total 7.8 g/dL (6.4-8.2)
[2024-06-27 19:08] LABS: Influenza A Ag Positive; Influenza B Ag Negative; SARS-CoV-2 Antigen Rapid Res Negative (Negative)
[2024-06-27 19:09] LABS: Troponin High Sensitivity 67.1 pg/mL (<58.9)
[2024-06-27 19:15] LABS: PT Prothrombin Time 11.7 SECONDS (10.0-13.0); PTT, Activated Partial Thromb 24.5 SECONDS (24.3-36.9); Protime INR 1.03
--- NOTE | 2024-06-27 19:22 | EDPHYS ---
Physician Documentation [facility] Name: Lizet Hsieh Age: 83 yrs Sex: Female : 1940 Arrival Date: 06/27/2024 Time: 17:11 Bed 13 Private MD: ED Physician Truong Shelton HPI: 06/27 17:40 This 83 yrs old Female presents to ER via EMS with complaints of dr5 Nausea/Vomiting, Shortness Of Breath. 17:40 The patient presents to the emergency department with nausea, vomiting. Onset: The dr5 symptoms/episode began/occurred acutely. . Patient is an 83-year-old female with history of hypercholesterol coming in with 1 week of cough and subjective fevers at home. Patient reports that she had episode of nausea and vomiting today that started at noon. Patient reports that she took 1 ibuprofen to help with pain. Patient states that her only medicines that she takes daily is Pepcid and Claritin. Patient denies heart issues, lung issues, and denies any pain at this time.. Historical: - Allergies: 17:17 Codeine; ph - PMHx: 17:17 High Cholesterol; Osteopenia; ph - Immunization history:: Adult Immunizations unknown. - Infectious Disease History:: Denies. - Social history:: Smoking status: Patient denies any tobacco usage or history of. ROS: 17:42 Constitutional: as per hpi dr5 Exam: 17:42 Constitutional: This is a well developed, well nourished patient who is awake, alert, dr5 and in no acute distress. Head/Face: Normocephalic, atraumatic. Eyes: Pupils equal round and reactive to light, extra-ocular motions intact. Lids and lashes normal. Conjunctiva and sclera are non-icteric and not injected. Cornea within normal limits. Periorbital areas with no swelling, redness, or edema. Neck: Trachea midline, no thyromegaly or masses palpated, and no cervical lymphadenopathy. Supple, full range of motion without nuchal rigidity, or vertebral point tenderness. No Meningismus. Chest/axilla: Normal chest wall appearance and motion. Nontender with no deformity. No lesions are appreciated. 17:42 Skin: Warm, dry with normal turgor. Normal color with no rashes, no lesions, and no evidence of cellulitis. Neuro: Awake and alert, GCS 15, oriented to person, place, time, and situation. Cranial nerves II-XII grossly intact. Motor strength 5/5 in all extremities. Sensory grossly intact. Cerebellar exam normal. Normal gait. 17:42 Respiratory: the patient does not display signs of respiratory distress, Respirations: normal, symetrical, no use of accessory muscles, no grunting, no evidence of nasal flaring, no appreciated paradoxical movements, Breath sounds: rales, are not appreciated, bronchial sounds, are not appreciated, decreased breath sounds, are not appreciated, Respiratory rate: 18 Vital Signs: 17:18 BP 114 / 62; Pulse 73; Resp 18; Temp 97.9; Pulse Ox 92% on R/A; ph 17:18 Pulse Ox 100% on 2 lpm NC; ph 19:02 BP 119 / 71; Pulse 78; Resp 18; Pulse Ox 97% on 2 lpm NC; ph 19:30 BP 116 / 71; Pulse 80; Resp 18; Pulse Ox 97% on 2 lpm NC; Pain 0/10; rg5 19:30 Pain Scale: Adult rg5 MDM: 17:30 Medical Screening Exam initiated dr5 17:43 ED course: Patient had oxygen saturation of 92%. Put patient on NC at 2L and increased dr5 to 99%.. 20:26 Differential diagnosis: Pneumonia, influenza, bronchitis. Data reviewed: vital signs, dr5 nurses notes. Consideration of Admission/Observation Patient was admitted/placed on observation. Management of patient was discussed with the following: Hospitalist: Dr. Shelton discussed case with Dr. Billy. Care significantly affected by the following chronic conditions: CHF, Hyperlipidemia. Care significantly affected by the following Social Determinants of Health: Poor access to healthcare and/or lack of insurance, Poor access to transportation, Problems related to employment. Counseling: I had a detailed discussion with the patient and/or guardian regarding the historical points, exam findings, and any diagnostic results supporting the discharge/admit diagnosis, the presence of at least one elevated blood pressure reading (>120/80) during this emergency department visit, lab results, the need for further work-up and treatment in the hospital. ED course: Case was discussed with Dr. Billy. Patient will be admitted. Dr. Billy requesting Tamiflu and Zosyn be put into admission orders. Completed in [employer]. 06/27 17:39 Order name: COVID-19 Ag + Flu A+B Ag; Complete Time: 19:08 dr5 06/27 17:39 Order name: CBC with Diff; Complete Time: 19:33 dr5 06/27 17:39 Order name: Magnesium; Complete Time: 19:09 dr5 06/27 17:39 Order name: NT PRO-BNP; Complete Time: 19:09 dr5 06/27 17:39 Order name: PT-INR; Complete Time: 19:16 dr5 06/27 17:39 Order name: Ptt, Activated; Complete Time: 19:16 dr5 06/27 17:39 Order name: Troponin HS; Complete Time: 19:09 dr5 06/27 17:39 Order name: CMP; Complete Time: 19:09 dr5 06/27 18:57 Order name: Manual Differential; Complete Time: 19:33 EDMS 06/27 20:27 Order name: Urinalysis w/ reflexes EDMS 06/28 08:13 Order name: CBC with Automated Diff EDMS 06/28 08:28 Order name: Basic Metabolic Panel EDMS 06/28 08:28 Order name: Troponin High Sensitivity EDMS 06/28 08:28 Order name: Magnesium EDMS 06/27 17:39 Order name: XRAY CXR (1 view); Complete Time: 18:37 dr5 06/27 17:39 Order name: Cardiac monitoring; Complete Time: 19:45 dr5 06/27 17:39 Order name: EKG - Nurse/Tech; Complete Time: 19:45 dr5 06/27 17:39 Order name: IV Saline Lock; Complete Time: 19:45 dr5 06/27 17:39 Order name: Labs collected and sent; Complete Time: 19:45 dr5 06/27 17:39 Order name: O2 Per Protocol; Complete Time: 18:13 dr5 06/27 17:39 Order name: O2 Sat Monitoring; Complete Time: 18:13 dr5 EC:58 Rate is 76 beats/min. Rhythm is regular. QRS Yale is Normal. SD interval is normal at dr5 158 msec. QRS interval is normal at 72 msec. QT interval is normal at 372 msec. Administered Medications: 18:45 Drug: NS 0.9% IV 500 ml IV at bolus once; to be given as a bolus over 30 minutes Route: ph IV; Rate: bolus; Site: right hand; 20:58 Follow up: IV Status: Completed infusion; IV Intake: 1000ml rg5 18:45 Drug: Ondansetron IVP 4 mg IVP once; over 2 minutes Route: IVP; Site: right hand; ph 20:58 Follow up: Response: No adverse reaction rg5 19:09 CANCELLED (Inappropriate at this time): amoxicillin-[id number] mg PO once dr5 19:09 CANCELLED (Inappropriate at this time): [id number] mg PO once dr5 19:45 Drug: Furosemide IVP 20 mg IVP once; give over 2 minutes Route: IVP; Site: right hand; rg5 20:58 Follow up: Response: No adverse reaction rg5 19:45 Drug: Oseltamivir PO 75 mg PO once Route: PO; rg5 20:58 Follow up: Response: No adverse reaction rg5 19:45 Drug: Potassium Chloride PO 40 mEq PO once Route: PO; rg5 20:58 Follow up: Response: No adverse reaction rg5 21:23 Drug: Piperacillin-Tazobactam IVPB 3.375 grams IVPB once over 60 mins; (mix in NS 100 rg5 mL) Route: IVPB; Infused Over: 60 mins; Site: right hand; 22:30 Follow up: IV Status: Completed infusion; IV Intake: 100ml rg5 Disposition: 06/28 20:41 Co-signature as Attending Physician, Truong Shelton MD I reviewed the patient's care rn provided by the Advanced Practice Provider and agree with the diagnosis and treatment plan. Disposition Summary: 06/27/24 19:21 Hospitalization Ordered Notes: Hospitalization Status: Inpatient Admission dr5 Provider: Sridevi Billy Condition: Stable dr5 Problem: new dr5 Symptoms: are unchanged dr5 Bed/Room Type: Standard dr5 Location: Telemetry/MedSurg (Inpatient)(06/28/24 16:17) bd Room Assignment: 209(06/28/24 16:17) bd Diagnosis - Influenza due to identified novel influenza A virus dr5 Discharge Instructions: - Discharge Summary Sheet dr5 - Heart Failure, Diagnosis dr5 - Influenza, Adult dr5 Forms: - Medication Reconciliation Form dr5 - SBAR form dr5 - Leadership Thank You Letter dr5 Prescriptions: - Zofran 4 mg Oral Tablet - take 1 tablet ORAL route every 12 hours As needed; 20 tablet; Refills: 0, dr5 Product Selection Permitted - Lasix 40 mg Oral Tablet - take 1 tablet ORAL route once daily for 30 days; 30 tablet; Refills: 0, Product dr5 Selection Permitted - Tamiflu 75 mg Oral capsule - take 1 tablet ORAL route every 12 hours for 5 days; 10 tablet; Refills: 0, dr5 Product Selection Permitted Signatures: Dispatcher [employer] EDMS Silva Cervantes Roman, MD MD rn Hall, Patricia RN RN Francia Quesada, RN RN Derek Hughes, RN RN rg5 Aliyah, Silas, COMPENSATION VICE PRESIDENT-C COMPENSATION VICE PRESIDENT-Cdr5 Corrections: (The following items were deleted from the chart) 06/27 17:40 17:40 COVID-19 Ag + Flu A+B Ag+I.LAB.BRZ ordered. EDMS EDMS 17:40 17:40 CBC+H.LAB.BRZ ordered. EDMS EDMS 17:40 17:40 MAGNESIUM+C.LAB.BRZ ordered. EDMS EDMS 17:40 17:40 PROBNP+C.LAB.BRZ ordered. EDMS EDMS 17:40 17:40 PROTIME (+INR)+COAG.LAB.BRZ ordered. EDMS EDMS 17:40 17:40 PTT, ACTIVATED+COAG.LAB.BRZ ordered. EDMS EDMS 17:40 17:40 Troponin High Sensitivity+C.LAB.BRZ ordered. EDMS EDMS 17:40 17:40 COMPREHENSIVE METABOLIC PANEL+C.LAB.BRZ ordered. EDMS EDMS 17:40 17:40 Chest Single View+RAD.RAD.BRZ ordered. EDMS EDMS 19:09 19:02 Amoxicillin-Clavulanate PO 875 mg PO once ordered. dr5 dr5 19:09 19:02 AZITHromycin PO 500 mg PO once ordered. dr5 dr5 19:54 19:21 Telemetry/MedSurg (observation) dr5 cg 19:54 19:21 dr5 cg 06/28 16:17 06/27 19:54 [facility] ER HOLD cg bd 06/28 16:17 06/27 19:54 ERHOLD- bd
--- NOTE | 2024-06-27 19:22 | ER ---
Nurse's Notes [facility] Name: Lizet Hsieh Age: 83 yrs Sex: Female : 1940 Arrival Date: 06/27/2024 Time: 17:11 Bed 13 Private MD: Diagnosis: Influenza due to identified novel influenza A virus Presentation: 06/27 17:18 Chief complaint: EMS states: N/V and SOB x approx 1 week, VSS other than room air Spo2 ph 92%, 1 neb tx given by EMS. Coronavirus screen: Vaccine status: Patient reports being unvaccinated. Ebola Screen: No symptoms or risks identified at this time. Initial Sepsis Screen: Does the patient meet any 2 criteria? No. Patient's initial sepsis screen is negative. Does the patient have a suspected source of infection? No. Patient's initial sepsis screen is negative. Risk Assessment: Do you want to hurt yourself or someone else? Patient reports no desire to harm self or others. Onset of symptoms was June 27, 2024. 17:18 Method Of Arrival: EMS: [facility] 17:18 Acuity: MIGUEL ANGEL 3 ph Historical: - Allergies: 17:17 Codeine; ph - PMHx: 17:17 High Cholesterol; Osteopenia; ph - Immunization history:: Adult Immunizations unknown. - Infectious Disease History:: Denies. - Social history:: Smoking status: Patient denies any tobacco usage or history of. Screenin:04 [facility] ED Fall Risk Assessment (Adult) History of falling in the last 3 months, ph including since admission No falls in past 3 months (0 pts) Confusion or Disorientation No (0 pts) Intoxicated or Sedated No (0 pts) Impaired Gait No (0 pts) Mobility Assist Device Used No (0 pt) Altered Elimination No (0 pt) Score/Fall Risk Level 0 - 2 = Low Risk Oriented to surroundings, Maintained a safe environment, Hourly rounding (assess needs \T\ fall precautionary measures) done. Abuse screen: Denies threats or abuse. Denies injuries from another. Nutritional screening: No deficits noted. Tuberculosis screening: No symptoms or risk factors identified. Assessment: 19:02 General: Appears in no apparent distress. comfortable, Behavior is calm, cooperative, ph appropriate for age. Pain: Denies pain. Neuro: Level of Consciousness is awake, alert, obeys commands, Oriented to person, place, time, situation. Cardiovascular: Capillary refill < 3 seconds in bilateral fingers Patient's skin is warm and dry. Respiratory: Reports shortness of breath cough that is Airway is patent Respiratory effort is even, unlabored, Respiratory pattern is regular, symmetrical. GI: Abdomen is non-distended, Reports nausea, vomiting. Derm: Skin is pink, warm \T\ dry. 20:01 Reassessment: No changes from previously documented assessment. Patient and/or family rg5 updated on plan of care and expected duration. Pain level reassessed. Patient is alert, oriented x 3, equal unlabored respirations, skin warm/dry/pink. Vital Signs: 17:18 BP 114 / 62; Pulse 73; Resp 18; Temp 97.9; Pulse Ox 92% on R/A; ph 17:18 Pulse Ox 100% on 2 lpm NC; ph 19:02 BP 119 / 71; Pulse 78; Resp 18; Pulse Ox 97% on 2 lpm NC; ph 19:30 BP 116 / 71; Pulse 80; Resp 18; Pulse Ox 97% on 2 lpm NC; Pain 0/10; rg5 19:30 Pain Scale: Adult rg5 Vitals: 19:02 Cardiac Rhythm Assessment Sinus rhythm. ph ED Course: 17:16 Patient arrived in ED. ph 17:17 Kaylah Ko, RN is Primary Nurse. ph 17:18 Arm band placed on Patient placed in an exam room. ph 17:27 Silas Ly FNP-C is PHCP. dr5 17:27 Truong Shelton MD is Attending Physician. dr5 18:03 Triage completed. ph 18:04 Patient has correct armband on for positive identification. Side rails up X2. Cardiac ph monitor on. Pulse ox on. NIBP on. 18:26 XRAY CXR (1 view) In Process Unspecified. EDMS 18:41 Missed attempt(s): 22 gauge in right antecubital area. Bleeding controlled, band aid ph applied, catheter tip intact. Missed attempt(s): 22 gauge in right forearm. Bleeding controlled, band aid applied, catheter tip intact. Inserted saline lock: 24 gauge in right hand, using aseptic technique. 18:42 Initial lab(s) drawn, by me, sent to lab. COVID swab sent to lab. Flu and/or RSV swab ph sent to lab. 19:20 Sridevi Billy MD is Hospitalizing Provider. dr5 20:01 Provided Education on: needs for admit. rg5 20:01 No provider procedures requiring assistance completed. Patient admitted, IV remains in rg5 place. 06/28 09:34 Primary Nurse role handed off by Kaylah Ko, ALONZO ph 16:44 Douglas Brown, ALONZO is Primary Nurse. jl7 Administered Medications: 06/27 18:45 Drug: NS 0.9% IV 500 ml IV at bolus once; to be given as a bolus over 30 minutes Route: ph IV; Rate: bolus; Site: right hand; 20:58 Follow up: IV Status: Completed infusion; IV Intake: 1000ml rg5 18:45 Drug: Ondansetron IVP 4 mg IVP once; over 2 minutes Route: IVP; Site: right hand; ph 20:58 Follow up: Response: No adverse reaction rg5 19:09 CANCELLED (Inappropriate at this time): amoxicillin-sruwpjvrkkh952 mg PO once dr5 19:09 CANCELLED (Inappropriate at this time): qbcesrihbumw924 mg PO once dr5 19:45 Drug: Furosemide IVP 20 mg IVP once; give over 2 minutes Route: IVP; Site: right hand; rg5 20:58 Follow up: Response: No adverse reaction rg5 19:45 Drug: Oseltamivir PO 75 mg PO once Route: PO; rg5 20:58 Follow up: Response: No adverse reaction rg5 19:45 Drug: Potassium Chloride PO 40 mEq PO once Route: PO; rg5 20:58 Follow up: Response: No adverse reaction rg5 21:23 Drug: Piperacillin-Tazobactam IVPB 3.375 grams IVPB once over 60 mins; (mix in NS 100 rg5 mL) Route: IVPB; Infused Over: 60 mins; Site: right hand; 22:30 Follow up: IV Status: Completed infusion; IV Intake: 100ml rg5 Medication: 18:04 VIS not applicable for this client. ph Intake: 20:58 IV: 1000ml; Total: 1000ml. rg5 22:30 IV: 100ml; Total: 1100ml. rg5 Outcome: 19:21 Decision to Hospitalize by Provider. dr5 20:01 Admitted to ER Hold. Please see [facility] for further documentation. rg5 20:01 Condition: stable 20:01 Instructed on the need for admit, 06/28 16:44 Patient left the ED. jl7 Signatures: Dispatcher [employer] EDKaylah Douglass, RN RN Douglas Brown RN RN jl7 Derek Gann RN RN rg5 Silas Ly, HOT DIP GALVANIZER-C HOT DIP GALVANIZER-Cdr5
[2024-06-27 19:32] LABS: Band Neutrophils 13 % (0-1); Differential Total Cells Count 100; Lymphocytes 4 % (15-42); Monocytes 9 % (0-10); Reactive Lymphocytes 1 %; Segmented Neutrophils 73 % (40-80)
[2024-06-27 19:33] LABS: Blood Morphology Comment NOT SEEN (NOT SEEN); Platelet Estimate ADEQ
[2024-06-27] MEDS ORDERED: FUROSEMIDE 20 MG/ 2ML VIAL ONE (19:41)
[2024-06-27] MEDS ORDERED: OSELTAMIVIR 75 MG CAP PO ONE (19:42)
[2024-06-27] MEDS ORDERED: POTASSIUM CL SA 10 MEQ TAB PO ONE (19:42)
[2024-06-27] MEDS ORDERED: PIPERACIL/TAZO 3.375 GM VIAL IV ONE (21:15)
[2024-06-27] MEDS ORDERED: NA CHLORIDE 0.9% 100 ML ONE (21:15)
[2024-06-28 02:19] VITALS: BMI 26.0
[2024-06-28] MEDS: NA CHLORIDE 0.9% 1,000 ML IV SCH (07:00)
[2024-06-28 08:11] LABS: Absolute Lymphocytes (CBC) 0.8 K/uL (0.7-4.9); Absolute Monocytes 0.8 K/uL (0.1-1.3); Absolute Neutrophil 6.7 K/uL (1.8-8.0); Basophils % 0.3 % (0-1.3); Eosinophils % 0.1 % (0-4.4); Hematocrit 41.3 % (36.0-45.0); Hemoglobin 14.1 g/dL (12.0-15.0); Lymphocytes % 9.1 % (15.3-44.8); MCH 33.1 pg (27.0-35.0); MCHC 34.2 g/dL (32.0-36.0); MCV 96.9 fL (80-100); MPV 8.2 fL (7.6-11.3); Monocytes % 9.8 % (3.3-12.3); Neutrophils % 80.7 % (41.7-73.7); Platelets 209 thou/uL (152-406); RBC Red Blood Cell Count 4.27 M/uL (3.86-4.86); Red Cell Distribution Width 13.7 % (12.1-15.2)
[2024-06-28 08:24] LABS: Magnesium 1.9 mg/dL (1.6-2.4)
[2024-06-28] MEDS ORDERED: ASPIRIN EC 81 MG TAB PO ONE (08:30)
[2024-06-28] MEDS ORDERED: NA CHLORIDE 0.9% 1,000 ML ONE (08:31)
[2024-06-28] MEDS ORDERED: ENOXAPARIN 30 MG/0.3 ML SQ ONE (08:31)
[2024-06-28] MEDS ORDERED: PIPERACIL/TAZO 3.375 GM VIAL IV ONE (08:41)
[2024-06-28] MEDS ORDERED: NA CHLORIDE 0.9% 100 ML ONE (08:41)
[2024-06-28] MEDS: PIPER TAZO 3.375 GM in NA CHLORIDE 0.9% 100 ML IV SCH (09:00)
[2024-06-28] MEDS: ENOXAPARIN 30 MG/0.3 ML SQ SCH (09:00)
[2024-06-28] MEDS: ASPIRIN EC 81 MG TAB PO SCH (09:00)
[2024-06-28] MEDS: OSELTAMIVIR 30 MG CAP PO SCH (09:00)
--- NOTE | 2024-06-28 12:12 | EKG ---
Test Date: 2024-06-27 Test Time: 18:54:45 Instrument Mechanic Weapons System: PH MEASUREMENT RESULTS: Intervals: Rate: 76 MN: 158 QRSD: 72 QT: 372 QTc: 418 Ravenel: P: 34 MN: 158 QRS: 78 T: -37 INTERPRETIVE STATEMENTS: Sinus rhythm with occasional premature ventricular complexes T wave abnormality, consider inferior ischemia Abnormal ECG Compared to ECG 05/03/2013 13:52:46 Ventricular premature complex(es) now present T-wave abnormality now present Myocardial infarct finding no longer present ST (T wave) deviation no longer present Possible ischemia still present Electronically Signed On 06-28-24 12:10:39 METAL HANGING SUPERVISOR by Duane Owens
--- NOTE | 2024-06-28 20:39 | PN ---
Date of Progress Note: 06/28/2024 Subjective: The patient was seen this morning for followup. She was lying in bed, not in any distre ss. Denies any complaints overnight. Objective: Vital Signs: Reviewed. HEENT: Unremarkable. Lungs: Clear to auscultation except presence of basal rales in right lung base, not using accessory muscles of respiration. Heart: Sounds normal. Abdomen: Soft. Bowel sounds normal. No guarding, rigidity, tenderness, distention. Extremities: No leg edema. Impression: 1. Pneumonia. 2. Influenza A. 3. Hyperlipidemia. 4. Osteoporosis. Plan: We will go ahead and continue current antibiotic, which is Zosyn. Continue Tamiflu. The alhaji ent's blood pressure was on the low side this morning when I saw her with systolic blood pressure bet ween 90 to 100, so IV fluid hydration was ordered and I will see her tomorrow for followup. Physical therapy was ordered. Her troponin was 67 yesterday, and today it is 75. Echo with Doppler was orde red. We will start Lovenox for DVT prophylaxis. There is no evidence of myocardial infarction. Thi s elevated troponin level was due to stress-induced ischemia and not indicating myocardial infarction . MOR/MODL Voice ID: [id number] Report ID: [id number]
--- NOTE | 2024-06-29 06:00 | HP ---
Date of Admission: 06/27/2024 Chief Complaint: Nausea, vomiting, cough, congestion. History Of Present Illness: This is an 83-year-old pleasant female patient, who lives at home, came into emergency room with couple of days of cough, congestion, and 1-day history of nausea, vomiting. She denies any abdominal pain. No shortness of breath. After she was evaluated in emergency room, she was admitted to hospital with influenza A and right lower lobe pneumonia. When I saw her in [facility] room, she was lying in bed, not in any distress. Allergies: TO CODEINE CAUSING NAUSEA AND VOMITING WELL MORPHINE CAUSING RASH AND HIVES. Medications: She takes famotidine 20 mg daily and vitamin D3 2000 units daily. Review of Systems: GI: As mentioned above. Respiratory: As mentioned above. All other systems reviewed and negative. Past Medical History: Significant for gastroesophageal reflux disease, hyperlipidemia, impaired fast ing glucose, osteoarthritis at multiple sites, osteoporosis with compression fracture of spine involv ing T6, T10, T12, and L3. Past Surgical History: Significant for surgery for fracture of radius and ulna and hip surgery and k nee surgery. Family History: Father had NC. Social History: Negative for smoking and alcohol use. Physical Examination: Vital Signs: Height 5 feet 1 inch, weight 138 pounds, temperature , pulse , resp iratory rate , blood pressure , oxygen saturation . General: Awake, alert, oriented, not in distress. HEENT: Head atraumatic, normocephalic. Conjunctivae nonerythematous. Sclerae white. Mouth, no thr ush or edema noted. Ears/Nose, no mass, lesion, discharge noted. Neck: Supple. No JVD, lymph nodes, bruit, thyromegaly noted. Lungs: Bilateral good equal air entry. Clear to auscultation except presence of rales noted in righ t lower lobe. Not using any accessory muscles of respiration. Heart: Normal heart sounds, no murmur or gallop. Abdomen: Soft, bowel sounds normal. No guarding, rigidity, tenderness, mass, hepatosplenomegaly, dis tention, or bruit noted. Extremities: No leg edema. No calf tenderness. Skin: No rash, ulcer, cellulitis. Lymphatics: No lymph node enlargement in neck, supraclavicular, infraclavicular region. Neuro: No focal neurological deficit. Chest: Unremarkable. External Genitalia: Deferred. Rectal: Deferred. Laboratory Data: WBC 6.4, hemoglobin 13.6, platelets 194. Sodium 135, potassium 3.3, chloride 103, bicarb 26, BUN 17, creatinine 0.84, glucose 130. Liver function tests unremarkable. Troponin 67.1. ProBNP 1775. Influenza A test positive. Influenza B and COVID test negative. Chest x-ray showing infiltrate in the medial right lung base. Impression: 1. Pneumonia. 2. Influenza A. 3. Osteoarthritis, multiple sites. 4. Osteoporosis with compression fracture of spine. 5. Hyperlipidemia. 6. Impaired fasting glucose. Plan: We will go ahead and admit the patient to hospital for further evaluation and management of th is problem. The patient is appropriate for inpatient and is expected to spend 2 midnights in [place] [facility]. For influenza A, we will go ahead and start her on Tamiflu and no need for any further interventi on. For pneumonia, we will start empiric antibiotic which will be Zosyn and monitor the patient. No need for any further intervention at this point. The patient is maintaining adequate oxygenation. For osteoarthritis, no need for any further intervention and she does not take any particular medicat ion at home for that. Her elevated troponin level is likely due to stress-induced ischemia and we wi ll go ahead and repeat troponin level tomorrow. The patient does not have any cardiac symptoms. DVT prophylaxis will be given using Lovenox and we will add low-dose aspirin 81 mg daily. Total time spent 75 minutes including review of emergency room visit record, [facility], review of last office visit record from 06/22/2024, and performing today's evalu ation and management. MOR/MODL Voice ID: [id number]
[2024-06-29 06:30] LABS: Absolute Lymphocytes (CBC) 0.8 K/uL (0.7-4.9); Absolute Monocytes 0.6 K/uL (0.1-1.3); Basophils % 0.1 % (0-1.3); Eosinophils % 0.2 % (0-4.4); Hematocrit 39.6 % (36.0-45.0); Hemoglobin 13.3 g/dL (12.0-15.0); Lymphocytes % 6.4 % (15.3-44.8); MCH 32.6 pg (27.0-35.0); MCHC 33.5 g/dL (32.0-36.0); MCV 97.5 fL (80-100); MPV 8.3 fL (7.6-11.3); Monocytes % 5.1 % (3.3-12.3); Neutrophils % 88.2 % (41.7-73.7); Platelets 174 thou/uL (152-406); RBC Red Blood Cell Count 4.06 M/uL (3.86-4.86); Red Cell Distribution Width 13.5 % (12.1-15.2)
--- NOTE | 2024-06-29 06:36 | ECHO ---
HEIGHT: 5 ft 1 in WEIGHT: 138 lb 0 oz DATE OF STUDY: 06/28/[address]: Sulaiman Billy MD 2-DIMENSIONAL: YES M.MODE: YES DOPPLER: YES COLOR FLOW: YES TDS: PORTABLE: YES DEFINITY: BUBBLE STUDY: DIAGNOSIS: ABNORMAL TROPONIN CARDIAC HISTORY: CATHERIZATION: NO SURGERY: NO PROSTHETIC VALVE: NO PACEMAKER: NO MEASUREMENTS (cm) DIASTOLIC (NORMALS) SYSTOLIC (NORMALS) IVSd 0.9 (0.6-1.2) LA Diam 4.1 (1.9-4.0) LVEF 60-65% LVIDd 4.5 (3.5-5.7) LVIDs 2.6 (2.0-3.5) %FS LVPWd 1.1 (0.6-1.2) Ao Diam 2.8 (2.0-3.7) 2 DIMENSIONAL ASSESSMENT: RIGHT ATRIUM: NORMAL LEFT ATRIUM: MODERATELY DILATED RIGHT VENTRICLE: NORMAL LEFT VENTRICLE: NORMAL TRICUSPID VALVE: MILD TRICUSPID REGURGITATION MITRAL VALVE: MODERATE MITRAL REGURGITATION PULMONIC VALVE: NORMAL AORTIC VALVE: NORMAL PERICARDIAL EFFUSION: NONE AORTIC ROOT: NORMAL LEFT VENTRICULAR WALL MOTION: NORMAL DOPPLER/COLOR FLOW: DIASTOLIC DYSFUNCTION COMMENTS: 1. NORMAL LEFT VENTRICULAR SYSTOLIC FUNCTION, EJECTION FRACTION 60-65%, NORMAL WALL MOTION 2. DIASTOLIC DYSFUNCTION 3. MODERATE MITRAL REGURGITATION 4. MODERATE LEFT ATRIAL ENLARGEMENT TECHNOLOGIST: DIOR SALMON
[2024-06-29 06:49] LABS: Anion Gap 12.5 mEq/L (5.0-15.0); Potassium 3.5 mEq/L (3.5-5.1)
[2024-06-29 07:06] LABS: Albumin 2.9 g/dL (3.4-5.0); Albumin/Globulin Ratio 0.8 (1.1-1.8); Bilirubin Direct 0.2 mg/dL (0-0.2); Bilirubin Indirect, Calculated 0.6 mg/dL (0.2-0.8); Bilirubin Total 0.8 mg/dL (0.2-1.0); Globulin 3.6 g/dL (2.3-3.5); Protein, Total 6.5 g/dL (6.4-8.2)
--- NOTE | 2024-06-29 07:57 | RAD REPORT ---
EXAMINATION: ONE VIEW CHEST XR CLINICAL INDICATION: Female, 83 years old.,pneumonia TECHNIQUE: Frontal chest projection is submitted. Examination is limited by patient positioning and t echnique. COMPARISON: 06/27/2024 FINDINGS: Bibasilar hazy opacities, stable to mildly improved in the retrocardiac space, and mildly progressive on the right peripherally with persistent right infrahilar opacification. Suboptimal inspiratory effort somewhat limits evaluation. No pneumothorax or sizable effusion. The heart is normal in size. Mediastinal contours are unchanged, with dense mitral valve atherosclerotic changes again seen. IMPRESSION: Mildly progressive right basilar airspace opacities as above concerning for pneumonia.
[2024-06-29] MEDS: D5 0.9 NS 1,000 ML IV SCH (09:33)
[2024-06-29] MEDS: FAMOTIDINE 20 MG/2 ML VIAL IV SCH (09:35)
[2024-06-29 10:05] LABS: Blood Morphology Comment NOT SEEN (NOT SEEN); Platelet Estimate ADEQ; White Blood Cell Scan OK (OK)
[2024-06-29] MEDS: Levofloxacin500mg IV 500 MG/100 ML BAG IV SCH (15:25)
[2024-06-29] MEDS: GUAIFENESIN/DM 5 ML UCUP PO PRN (21:22)
--- NOTE | 2024-06-29 21:40 | PN ---
Date of Progress Note: 06/29/2024 Subjective: The patient was seen this morning for followup. She was lying in bed. No new complaint s or problems reported except had some nausea and vomiting overnight. This morning, she reported adrián t she was feeling much better. Objective: Vital Signs: Reviewed. HEENT: Unremarkable. Lungs: Bilateral good equal air entry. Some right basal rales noted. Not using accessory muscles o f respiration. Heart: Sounds normal. Abdomen: Soft. Bowel sounds normal. No guarding, rigidity, tenderness, distention. Extremities: No leg edema. Laboratory Data: Sodium 137, potassium 3.5, chloride 105, bicarb 23, BUN 20, creatinine 0.84, glucos e 63. Liver function test unremarkable. Troponin 55.5. WBC 12.5, hemoglobin 13.3, platelets 174. Impression: 1. Pneumonia. 2. Influenza A. 3. Abnormal cardiac enzyme. Plan: The patient's troponin level has come down to normal today. We will continue current Lovenox per order for DVT prophylaxis. IV fluid was changed from normal saline to D5 normal saline at 50 cc/ hour. The patient was feeling overall better. She was encouraged to participate with physical thera py. We will change antibiotics from Zosyn to Levaquin today. Chest x-ray has shown slight worsening of the pneumonia. I will see her tomorrow fo r followup. MOR/MODL Voice ID: [id number] Report ID: [id number]
--- NOTE | 2024-06-30 22:16 | PN ---
Date of Progress Note: 06/30/2024 Subjective: The patient was seen this morning for followup. No new complaints or problems reported by her. Overall, she was feeling better this morning compared to yesterday. No nausea or vomiting y esterday or overnight. Her appetite has improved. Yesterday, Physical Therapy did not work with her and she did not ambulate yesterday as she was reporting. Objective: Vital Signs: Reviewed. HEENT: Unremarkable. Lungs: Clear to auscultation except right basal rales. Not using accessory muscles of respiration. Heart: Sounds normal. Abdomen: Soft. Bowel sounds normal. No guarding, rigidity, tenderness, distention. Extremities: No leg edema. Impression: 1. Influenza A. 2. Pneumonia. 3. Acute respiratory failure with hypoxia. 4. Gastroesophageal reflux disease. Plan: We will continue famotidine. Continue current antibiotic, Levaquin and antiviral therapy with Tamiflu. Physical Therapy to work with the patient to help her ambulate, and nursing staff to starr t the patient to spend about 1 hour in the chair around her meal time. Hopefully, her oxygen level i mproves well enough where she does not require any more oxygen, and in that case she can be safely di scharged to go home either tomorrow or day after tomorrow. We will need to try to wean off her oxyge n as long as oxygen saturation remains more than 90%. I will be out of town, and I have discussed de tails with hospitalist, Dr. Croft, who will take over this patient's care in my absence. MOR/MODL Voice ID: [id number] Report ID: [id number]
[2024-07-01 05:21] LABS: Absolute Eosinophils 0.1 K/uL (0-0.5); Absolute Monocytes 0.7 K/uL (0.1-1.3); Absolute Neutrophil 2.5 K/uL (1.8-8.0); Basophils % 0.6 % (0-1.3); Lymphocytes % 22.6 % (15.3-44.8); MCHC 34.2 g/dL (32.0-36.0); MCV 96.5 fL (80-100); MPV 8.9 fL (7.6-11.3); Monocytes % 17.3 % (3.3-12.3); Neutrophils % 57.5 % (41.7-73.7); Nucleated Red Blood Cells % 0.1 % (0-0); Platelets 168 thou/uL (152-406); RBC Red Blood Cell Count 3.63 M/uL (3.86-4.86)
[2024-07-01 05:48] LABS: Anion Gap 10.3 mEq/L (5.0-15.0); Potassium 3.3 mEq/L (3.5-5.1)
[2024-07-01] MEDS: POTASSIUM CL SA 10 MEQ TAB PO ONE ×2 (06:24→17:44)
--- NOTE | 2024-07-01 08:34 | RAD REPORT ---
Procedure: Chest Single View HISTORY: Cough COMPARISON: June 29, 2024 FINDINGS: Partial resolution mild bilateral pulmonary opacities No significant pleural effusion noted. The heart is mildly enlarged IMPRESSION: Partial resolution in mild bilateral pulmonary opacities
[2024-07-02] MEDS: POTASSIUM CL SA 10 MEQ TAB PO ONE (07:32)
[2024-07-03 06:44] LABS: Absolute Eosinophils 0.1 K/uL (0-0.5); Absolute Lymphocytes (CBC) 1.1 K/uL (0.7-4.9); Absolute Monocytes 0.7 K/uL (0.1-1.3); Anion Gap 7.6 mEq/L (5.0-15.0); Basophils % 0.8 % (0-1.3); Eosinophils % 2.1 % (0-4.4); Hematocrit 37.7 % (36.0-45.0); Hemoglobin 12.6 g/dL (12.0-15.0); Lymphocytes % 27.9 % (15.3-44.8); MCH 32.7 pg (27.0-35.0); MCHC 33.5 g/dL (32.0-36.0); MCV 97.5 fL (80-100); MPV 8.1 fL (7.6-11.3); Magnesium 1.9 mg/dL (1.6-2.4); Monocytes % 18.1 % (3.3-12.3); Neutrophils % 51.1 % (41.7-73.7); Nucleated Red Blood Cells % 0.2 % (0-0); Platelets 197 thou/uL (152-406); Potassium 3.6 mEq/L (3.5-5.1); RBC Red Blood Cell Count 3.86 M/uL (3.86-4.86); Red Cell Distribution Width 13.4 % (12.1-15.2)
--- NOTE | 2024-07-03 07:50 | P.PN ---
Subjective Date of Service: 07/03/24 Admitted with influenza reports, cough, nausea, vomiting, improved, 93% on room air Review of Systems 10-point ROS is otherwise unremarkable Physical Examination - Vital Signs Temperature: 97.6 F Blood Pressure: 123/67 Pulse: 80 Respirations: 18 Pulse Ox (%): 93 - Physical Exam General: Alert, In no apparent distress, Oriented x3 HEENT: Atraumatic, Normocephalic Neck: Supple, 2+ carotid pulse no bruit Respiratory: Normal air movement Cardiovascular: Normal pulses, Regular rate/rhythm, Normal S1 S2 Capillary refill: <2 Seconds Gastrointestinal: Normal bowel sounds, Soft and benign Musculoskeletal: No clubbing, No swelling Integumentary: No breakdown, No significant lesion Neurological: Normal speech, Normal strength at 5/5 x4 extr, Cranial nerves 3-12 intact Assessment And Plan - Current Problems (Diagnosis) (1) Acute hypoxic respiratory failure Current Visit: Yes Status: Acute (2) Influenza Current Visit: Yes Status: Acute (3) Nausea & vomiting Current Visit: Yes Status: Acute (4) Hyperlipidemia Current Visit: Yes Status: Acute Qualifiers: Hyperlipidemia type: unspecified Qualified Code(s): E78.5 - Hyperlipidemia, unspecified - Plan Assessment Acute hypoxic respiratory failure secondary to influenza, viral pneumonia O2 2 L keep sats greater than 92% IV Levaquin, Chest x-ray mild bilateral pulmonary opacities, cardiomegaly Nausea vomiting IV fluids, as needed antiemetics IV fluid Hyperlipidemia Resume appropriate home meds Full code Diet cardiac DVT Lovenox Disposition pending hospital course Discharge Plan: Home - Code Status/Comfort Care Code Status: Full Code Critical Care: No Time Spent Managing PTS Care (In Minutes): 35
[2024-07-03 08:47] VITALS: BP 115/61; TEMP 98.2
--- NOTE | 2024-07-03 12:45 | P.PN ---
Subjective Date of Service: 07/01/24 Patient is clinically doing well. Patient denies any new complaints. She started to feel a whole lot better. Coughing is much better as well. Review of Systems 10-point ROS is otherwise unremarkable Physical Examination - Vital Signs Temperature: 98.2 F Blood Pressure: 115/61 Pulse: 76 Respirations: 16 Pulse Ox (%): 93 - Physical Exam General: Alert, In no apparent distress, Oriented x3 Respiratory: Diminished, Other (Upper airway noise but otherwise clear) Cardiovascular: Regular rate/rhythm, Normal S1 S2, No murmurs Gastrointestinal: Normal bowel sounds, Soft and benign, Non-distended, No t enderness Musculoskeletal: No clubbing, No swelling, No tenderness Neurological: Sensation intact, Cranial nerves 3-12 intact - Studies Medications List Reviewed: Yes Assessment & Plan - Problems (Diagnosis) (1) Influenzal pneumonia Current Visit: Yes Status: Acute (2) Bacterial pneumonia Current Visit: Yes Status: Acute (3) GERD (gastroesophageal reflux disease) Current Visit: Yes Status: Acute (4) Acute hypoxic respiratory failure Current Visit: Yes Status: Acute - Plan Plan: 1. Patient with influenza pneumonia with secondary bacterial pneumonia; continue with Tamiflu and antibiotic therapy. Inhaler therapy as needed. Cough medication and supportive care; patient did have hypoxemia but this is resolved. 2. History of GERD; continue with PPI 3. Generalized weakness and deconditioning; outpatient physical therapy or home health with physical therapy Discharge Plan: Home Plan to discharge in: Greater than 2 days - Advance Directives Does patient have a Living Will: No Does patient have a Durable POA for Healthcare: No - Code Status/Comfort Care Code Status: Full Code Critical Care: No Time Spent Managing PTS Care (In Minutes): 35
--- NOTE | 2024-07-03 12:46 | P.PN ---
Date of Service: 07/02/24 Subjective Patient continues to do well. Patient denies any new complaints. She is feeling much better. However, the daughter wants her to stay 1 more night. Physical Examination - Vital Signs Reviewed - Physical Exam General: Alert, In no apparent distress, Oriented x3 Respiratory: Diminished, Other (Upper airway noise but otherwise clear) Cardiovascular: Regular rate/rhythm, Normal S1 S2, No murmurs Gastrointestinal: Normal bowel sounds, Soft and benign, Non-distended, No tenderness Musculoskeletal: No clubbing, No swelling, No tenderness Neurological: No focal deficits Assessment & Plan - Problems (Diagnosis) (1) Influenzal pneumonia Current Visit: Yes Status: Acute (2) Bacterial pneumonia Current Visit: Yes Status: Acute (3) GERD (gastroesophageal reflux disease) Current Visit: Yes Status: Acute (4) Acute hypoxic respiratory failure Current Visit: Yes Status: Acute - Plan Continue with plan of care as mentioned below: 1. Patient with influenza pneumonia with secondary bacterial pneumonia; continue with Tamiflu and antibiotic therapy. Inhaler therapy as needed. Cough medication and supportive care; patient did have hypoxemia but this is resolved. 2. History of GERD; continue with PPI 3. Generalized weakness and deconditioning; outpatient physical therapy or home health with physical therapy Discharge Plan: Home Plan to discharge in: Greater than 2 days - Advance Directives Does patient have a Living Will: No Does patient have a Durable POA for Healthcare: No - Code Status/Comfort Care Code Status: Full Code Critical Care: No Time Spent Managing PTS Care (In Minutes): 25
--- NOTE | 2024-07-03 12:49 | P.DS ---
Discharge Date: 07/03/24 Disposition: ROUTINE DISCHARGE Discharge Condition: GOOD - Problems (1) Influenzal pneumonia Current Visit: Yes Status: Acute (2) Bacterial pneumonia Current Visit: Yes Status: Acute (3) GERD (gastroesophageal reflux disease) Current Visit: Yes Status: Acute (4) Acute hypoxic respiratory failure Current Visit: Yes Status: Acute Brief History of Present Illness: This is an 83-year-old pleasant female patient, who lives at home, came into emergency room with couple of days of cough, congestion, and 1-day history of nausea, vomiting. She denies any abdominal pain. No shortness of breath. After she was evaluated in emergency room, she was admitted to hospital with influenza A and right lower lobe pneumonia. When I saw her in emergency room, she was lying in bed, not in any distress. Hospital Course: Patient has done well during hospital stay. Patient clinical symptoms are much better. Patient denies any new complaints. At this time, patient is doing well and will discharge with continued antiviral therapy and antibiotic therapy. Continue with tapering dose of prednisone. Supportive care with cough medication and medication for congestion. Patient will see her primary care provider, Dr. Billy, in 1 to 2 weeks Vital Signs/Physical Exam: Temp Pulse Resp BP Pulse Ox 98.2 F 76 16 115/61 93 07/03/24 12:44 07/03/24 12:44 07/03/24 12:44 07/03/24 12:44 07/03/24 12:44 General: Alert, In no apparent distress, Oriented x3 Laboratory Data at Discharge: WBC 3.90 thou/uL (4.3-10.9) L 07/03/24 06:13 Hgb 12.6 g/dL (12.0-15.0) 07/03/24 06:13 Hct 37.7 % (36.0-45.0) 07/03/24 06:13 Plt Count 197 thou/uL (152-406) 07/03/24 06:13 PT 11.7 SECONDS (10.0-13.0) 06/27/24 18:55 INR 1.03 06/27/24 18:55 APTT 24.5 SECONDS (24.3-36.9) 06/27/24 18:55 Sodium 137 mEq/L (136-145) 07/03/24 06:13 Potassium 3.6 mEq/L (3.5-5.1) 07/03/24 06:13 BUN 14 mg/dL (7-18) 07/03/24 06:13 Creatinine 0.71 mg/dL (0.55-1.02) 07/03/24 06:13 Glucose 93 mg/dL (74-106) 07/03/24 06:13 Magnesium 1.9 mg/dL (1.6-2.4) 07/03/24 06:13 Total Bilirubin 0.8 mg/dL (0.2-1.0) 06/29/24 06:21 AST 24 U/L (15-37) 06/29/24 06:21 ALT 20 U/L (13-56) 06/29/24 06:21 Alkaline Phosphatase 69 U/L (45-117) 06/29/24 06:21 Home Medications: Loratadine [Claritin*] 1 pill PO BEDTIME 06/28/24 Benzonatate [Tessalon Perle] 200 mg PO TID #30 cap 07/01/24 Oseltamivir Phosphate [Tamiflu] 30 mg PO BID #4 cap 07/01/24 levoFLOXacin [Levaquin] 500 mg PO DAILY #7 tab 07/01/24 predniSONE [Deltasone] 5 mg PO DAILY #6 tab 07/01/24 New Medications: levoFLOXacin [Levaquin] 500 mg PO DAILY #7 tab predniSONE [Deltasone] 5 mg PO DAILY #6 tab Oseltamivir Phosphate [Tamiflu] 30 mg PO BID #4 cap Benzonatate [Tessalon Perle] 200 mg PO TID #30 cap Physician Discharge Instructions: -DC IV and DC home -Follow-up with PCP in 1 to 2 weeks -Follow-up with Pulmonary in 1 to 2 weeks -Please call Dr. Croft at [phone] if any questions regarding hospital stay -Please call nursing station at [phone] if any nursing or medication questions -Return to the emergency room if symptoms worsen Diet: AHA Activity: Fall precautions Followup: Sulaiman Billy MD [Primary Care Provider] - Time spent managing pt's care (in minutes): 35
[2024-07-03 14:52] VITALS: O2SAT 92
== END 2024-07-03 16:15 | disposition home or self-care (01) | DRG 193 ==
LOC: ER 17:11 → ERHOLD 20:08 → 2ND 06-28 16:51
PROVIDERS: ADMIT Hospitalist; ATTEND Hospitalist
DX: J09.X1 Influenza due to identified novel influenza A virus with pneumonia (principal); J96.01 Acute respiratory failure with hypoxia; J15.9 Unspecified bacterial pneumonia; E78.00 Pure hypercholesterolemia, unspecified; M19.09 Primary osteoarthritis, other specified site; K21.9 Gastro-esophageal reflux disease without esophagitis; M80.88XD Other osteoporosis with current pathological fracture, vertebra(e), subsequent encounter for fracture with routine healing; R73.01 Impaired fasting glucose; Z88.5 Allergy status to narcotic agent; Z11.52 Encounter for screening for COVID-19; Z79.899 Other long term (current) drug therapy
CPT/HCPCS: 36415; 71045; 80048; 80053; 80076; 83735; 83880; 84132; 84484; 85025; 85610; 85730; 87428; 93005; 93306; 96361; 96365; 96375; 97116; 97161; 97530; 99285; J1650; J1940; J2405; J2543; J7030; J7040; J7042